=== PATIENT | female | born 1960 | race Caucasian/White ===

== ENCOUNTER → 2016-12-06 | Outpatient (REF) | payer MEDICAID ==
[~2016-12-06] MED LIST: /ESOM40CA OR; ARTISOL10 OU; ASPI325T OR; CRES5TAB PO; FLEXERIL PO; GEMF600T OR; HUMUINJ SQ; IMIT50TA INJ; INSULANT SC; METF500T4 OR; NEUR400C OR; RANI150C OR; SIMV40TA2 OR; TRAM50TA2 OR; TRAM50TA2 PO; ZETI10TA OR; fluocinonide TOP
== END ==
LOC: M LAB REF 15:09
PROVIDERS: ATTEND Ophthalmology
DX: H11.441 Conjunctival cysts, right eye (principal)

== ENCOUNTER → 2017-07-14 | Outpatient (CLI) | payer OTHER | LOC: M PAIN 10:30 | DX: G89.29 Other chronic pain (principal); M51.26 Other intervertebral disc displacement, lumbar region; M47.816 Spondylosis without myelopathy or radiculopathy, lumbar region; E11.9 Type 2 diabetes mellitus without complications; Z79.4 Long term (current) use of insulin; Z79.899 Other long term (current) drug therapy; Z91.018 Allergy to other foods; Z87.891 Personal history of nicotine dependence | CPT/HCPCS: G0463 ==

== ENCOUNTER → 2017-08-02 | Outpatient (CLI) | payer OTHER ==
[~2017-08-02] MED LIST changes: -/ESOM40CA OR; -ARTISOL10 OU; -ASPI325T OR; -CRES5TAB PO; -FLEXERIL PO; -GEMF600T OR; -HUMUINJ SQ; -IMIT50TA INJ; -INSULANT SC; +ISOVUE-M 300 61% 15ML VIAL (Q9967) As Ordered; +LIDOCAINE 1% SDV INJ 30 ML VIAL As Ordered; -METF500T4 OR; -NEUR400C OR; -RANI150C OR; -SIMV40TA2 OR; -TRAM50TA2 OR; -TRAM50TA2 PO; -ZETI10TA OR; +diazePAM 5 MG TAB As Ordered; -fluocinonide TOP; +methylPREDNISolone SUSP 40 MG/ML (DEPO-medrol) VIAL (J1030) As Ordered
== END ==
LOC: M PAIN 08:45
DX: G89.29 Other chronic pain (principal); M51.16 Intervertebral disc disorders with radiculopathy, lumbar region; E11.9 Type 2 diabetes mellitus without complications; Z79.4 Long term (current) use of insulin; Z79.899 Other long term (current) drug therapy; Z91.018 Allergy to other foods; Z87.891 Personal history of nicotine dependence
CPT/HCPCS: J1030

== ENCOUNTER → 2017-08-23 | Outpatient (CLI) | payer OTHER | LOC: M PAIN 10:00 | DX: M51.26 Other intervertebral disc displacement, lumbar region (principal); M47.816 Spondylosis without myelopathy or radiculopathy, lumbar region; Z79.4 Long term (current) use of insulin; Z79.899 Other long term (current) drug therapy; Z87.891 Personal history of nicotine dependence; Z91.018 Allergy to other foods | CPT/HCPCS: G0463 ==

== ENCOUNTER → 2017-10-24 | Outpatient (CLI) | payer OTHER | LOC: M PAIN 09:15 | DX: M51.26 Other intervertebral disc displacement, lumbar region (principal); M47.816 Spondylosis without myelopathy or radiculopathy, lumbar region; G89.29 Other chronic pain; E11.9 Type 2 diabetes mellitus without complications; J30.89 Other allergic rhinitis; Z79.4 Long term (current) use of insulin; Z79.899 Other long term (current) drug therapy; Z91.018 Allergy to other foods; Z98.890 Other specified postprocedural states; Z87.891 Personal history of nicotine dependence | CPT/HCPCS: G0463 ==

== ENCOUNTER 2018-03-27 07:52 | Day surgery (SDC) | payer OTHER ==
[~2018-03-27 07:52] MED LIST changes: +CYCLOPENTOLATE 2% OPHTH SOLN 2ML BTL OD; -ISOVUE-M 300 61% 15ML VIAL (Q9967) As Ordered; -LIDOCAINE 1% SDV INJ 30 ML VIAL As Ordered; +LIDOCAINE 3.5 % 1ML OPHTH TOPICAL GEL OU; +OFLOXACIN 0.3 % (OCUFLOX) OPTH SOL 5ML OD; +PHENYLEPHRINE 2.5% OPHTH SOL 2ML OD; +PHENYLEPHRINE HCL 10 % OPHTH. SOL 5ML OD; +TROPICAMIDE 1% OPHTH SOLN 2ML OD; -diazePAM 5 MG TAB As Ordered; -methylPREDNISolone SUSP 40 MG/ML (DEPO-medrol) VIAL (J1030) As Ordered
[2018-03-27] MEDS ORDERED: OFLOXACIN 0.3 % (OCUFLOX) OPTH SOL 5ML As Ordered (08:22)
[2018-03-27] MEDS ORDERED: CYCLOPENTOLATE 2% OPHTH SOLN 2ML BTL As Ordered (08:22)
[2018-03-27] MEDS ORDERED: PHENYLEPHRINE 2.5% OPHTH SOL 2ML As Ordered (08:22)
[2018-03-27] MEDS ORDERED: TROPICAMIDE 1% OPHTH SOLN 2ML As Ordered (08:22)
[2018-03-27] MEDS ORDERED: fentaNYL 100 MCG/2 ML INJECTION (J3010) As Ordered (08:25)
[2018-03-27] MEDS ORDERED: MIDAZOLAM INJ 2 MG/2 ML VIAL (J2250) As Ordered (08:25)
[2018-03-27 08:34] LABS: BEDSIDE GLUCOSE 380 MG/DL (70-105)
[2018-03-27] MEDS ORDERED: HumaLOG INSULIN (NovoLOG) PER UNIT As Ordered (08:54)
[2018-03-27] MEDS: HumaLOG INSULIN (NovoLOG) PER UNIT SC (08:55)
[2018-03-27] MEDS: POVIDONE-IODINE 5% OPHTH PREP SOL 30ML As Ordered (09:52)
[2018-03-27] MEDS: LIDOCAINE 1% SDV 5 ML VIAL As Ordered (09:56)
[2018-03-27] MEDS: BSS with VANC/TOB/EPI for EYE CASES IR (09:58)
[2018-03-27] MEDS: HEALON DUET (HEALON 10MG/ML 0.55ML & HEALON ENDOCOAT 30MG/ML 0.85ML) As Ordered (09:59)
[2018-03-27] MEDS: MOXIFLOXACIN IN BSS 0.25MG/0.25ML INTRACAMERAL INJ (OR EYE ONLY)(J2280) As Ordered (10:00)
[2018-03-27] MEDS: TRIAMCINOLONE PRES FR 40 MG/ML 1ML(TRIESENCE)(OR EYE ONLY)(J3300 PER 1MG) As Ordered (10:01)
== END 2018-03-27 10:45 | disposition home or self-care (01) ==
LOC: M SDC 07:52
DX: H25.9 Unspecified age-related cataract (principal); E11.9 Type 2 diabetes mellitus without complications; I10 Essential (primary) hypertension; E78.5 Hyperlipidemia, unspecified; Z79.82 Long term (current) use of aspirin; Z79.4 Long term (current) use of insulin; Z79.899 Other long term (current) drug therapy; F41.9 Anxiety disorder, unspecified; K21.9 Gastro-esophageal reflux disease without esophagitis; Z87.891 Personal history of nicotine dependence
CPT/HCPCS: 66984

== ENCOUNTER 2018-04-04 08:35 | Day surgery (SDC) | payer OTHER ==
[2018-04-04] MEDS: TRIAMCINOLONE PRES FR 40 MG/ML 1ML(TRIESENCE)(OR EYE ONLY)(J3300 PER 1MG) As Ordered (06:53)
[2018-04-04] MEDS: HEALON DUET (HEALON 10MG/ML 0.55ML & HEALON ENDOCOAT 30MG/ML 0.85ML) As Ordered (06:53)
[~2018-04-04 08:35] MED LIST changes: +ACETAMINOPHEN 325 MG TAB PO; -CYCLOPENTOLATE 2% OPHTH SOLN 2ML BTL OD; +LIDOCAINE 1% MDV 20ML VIAL SQ; -LIDOCAINE 3.5 % 1ML OPHTH TOPICAL GEL OU; +MIDAZOLAM INJ 2 MG/2 ML VIAL (J2250) As Ordered; -OFLOXACIN 0.3 % (OCUFLOX) OPTH SOL 5ML OD; +ONDANSETRON 4MG/2ML VIAL (J2405) As Ordered; -PHENYLEPHRINE 2.5% OPHTH SOL 2ML OD; -PHENYLEPHRINE HCL 10 % OPHTH. SOL 5ML OD; +PHENYLEPHRINE HCL 10 % OPHTH. SOL 5ML OS; -TROPICAMIDE 1% OPHTH SOLN 2ML OD; +fentaNYL 100 MCG/2 ML INJECTION (J3010) As Ordered
[2018-04-04] MEDS: LIDOCAINE 3.5 % 1ML OPHTH TOPICAL GEL OU (10:55)
[2018-04-04] MEDS: OFLOXACIN 0.3 % (OCUFLOX) OPTH SOL 5ML OS (11:00)
[2018-04-04] MEDS: TROPICAMIDE 1% OPHTH SOLN 2ML OS (11:02)
[2018-04-04] MEDS: CYCLOPENTOLATE 2% OPHTH SOLN 2ML BTL OS (11:04)
[2018-04-04 11:06] LABS: BEDSIDE GLUCOSE 363 MG/DL (70-105)
[2018-04-04] MEDS: PHENYLEPHRINE 2.5% OPHTH SOL 2ML OS (11:06)
[2018-04-04] MEDS ORDERED: HumaLOG INSULIN (NovoLOG) PER UNIT As Ordered (11:22)
[2018-04-04] MEDS: HumaLOG INSULIN (NovoLOG) PER UNIT SC (11:25)
[2018-04-04] MEDS: POVIDONE-IODINE 5% OPHTH PREP SOL 30ML As Ordered (12:30)
[2018-04-04] MEDS: MOXIFLOXACIN IN BSS 0.25MG/0.25ML INTRACAMERAL INJ (OR EYE ONLY)(J2280) As Ordered (12:37)
[2018-04-04] MEDS: BSS with VANC/TOB/EPI for EYE CASES IR (12:37)
[2018-04-04] MEDS: LIDOCAINE 1% SDV 5 ML VIAL As Ordered (12:37)
[2018-04-04] MEDS ORDERED: AcetaZOLAMIDE 500 MG ER CAP As Ordered (13:04)
[2018-04-04] MEDS: AcetaZOLAMIDE 500 MG ER CAP PO (13:12)
[2018-04-04] MEDS ORDERED: TRIMETHOBENZAMIDE 300 MG CAP PO (13:15)
== END 2018-04-04 13:27 | disposition home or self-care (01) ==
LOC: M SDC 08:35
DX: H26.9 Unspecified cataract (principal); I10 Essential (primary) hypertension; R07.9 Chest pain, unspecified; E78.5 Hyperlipidemia, unspecified; E11.00 Type 2 diabetes mellitus with hyperosmolarity without nonketotic hyperglycemic-hyperosmolar coma (NKHHC); E11.40 Type 2 diabetes mellitus with diabetic neuropathy, unspecified; K21.9 Gastro-esophageal reflux disease without esophagitis; M12.9 Arthropathy, unspecified; G43.909 Migraine, unspecified, not intractable, without status migrainosus; F41.9 Anxiety disorder, unspecified; M54.9 Dorsalgia, unspecified; R94.5 Abnormal results of liver function studies; G47.33 Obstructive sleep apnea (adult) (pediatric); L40.9 Psoriasis, unspecified; L91.8 Other hypertrophic disorders of the skin; J45.909 Unspecified asthma, uncomplicated; Z88.8 Allergy status to other drugs, medicaments and biological substances; Z91.018 Allergy to other foods; Z79.899 Other long term (current) drug therapy; Z79.82 Long term (current) use of aspirin; Z79.4 Long term (current) use of insulin; Z78.0 Asymptomatic menopausal state; Z87.891 Personal history of nicotine dependence
CPT/HCPCS: 66984

== ENCOUNTER → 2019-03-07 | Outpatient (REF) | payer OTHER ==
[~2019-03-07] MED LIST changes: -ACETAMINOPHEN 325 MG TAB PO; +ARTIDRO2 OP; +ARTISOL10 OU; +ASPI325T OR; +ASPI81TA26 PO; +ATOR80TA59 PO; +CRES40TA PO; +CRES5TAB PO; +FLEXERIL PO; +GABA-1171 PO; +GEMF600T OR; +HUMUINJ SQ; +HYDR-3363 PO; +IMIT50TA INJ; +INSUHUMDS SC; +INSULANT SC; +LEVOTAB10 PO; -LIDOCAINE 1% MDV 20ML VIAL SQ; +LISI-542 PO; +METF500T13 PO; +METF500T4 OR; -MIDAZOLAM INJ 2 MG/2 ML VIAL (J2250) As Ordered; +NEUR400C OR; +NEXI1CAP3 OR; -ONDANSETRON 4MG/2ML VIAL (J2405) As Ordered; -PHENYLEPHRINE HCL 10 % OPHTH. SOL 5ML OS; +RANI150C OR; +RANI150T PO; +SIMV40TA2 OR; +TOUJ1.2I SC; +TRAM50TA2 OR; +TRAM50TA2 PO; +TRUL0.5I SC; +ZETI10TA OR; -fentaNYL 100 MCG/2 ML INJECTION (J3010) As Ordered; +fluocinonide TOP
== END ==
LOC: M LAB REF 15:54
PROVIDERS: ATTEND Ophthalmology
DX: D23.111 Other benign neoplasm of skin of right upper eyelid, including canthus (principal); D23.121 Other benign neoplasm of skin of left upper eyelid, including canthus

== ENCOUNTER 2019-10-04 12:57 | Inpatient (IN) | payer OTHER ==
[~2019-10-04 12:57] MED LIST changes: -ARTIDRO2 OP; +POLYOPD OP
[2019-10-04 14:15] VITALS: BP 143/84
[2019-10-04] MEDS ORDERED: DEXTROSE 50% 50 ML SYRINGE IV PRN ×2 (14:30→15:30)
[2019-10-04] MEDS ORDERED: GLUCAGON INJ 1MG VIAL SC PRN ×2 (14:30→15:30)
[2019-10-04] MEDS ORDERED: GLUCOSE 4GM CHEW TABLET PO PRN ×2 (14:30→15:30)
[2019-10-04] MEDS ORDERED: OMEP-218 PO (15:02)
[2019-10-04] MEDS ORDERED: VITA-158 PO (15:02)
[2019-10-04] MEDS ORDERED: VITAD1000T PO (15:02)
[2019-10-04] MEDS ORDERED: VICT18IN SC (15:02)
[2019-10-04] MEDS ORDERED: LISI-1046 PO (15:02)
[2019-10-04] MEDS ORDERED: PROZ10CA7 PO (15:02)
[2019-10-04] MEDS ORDERED: ACET-907 PO (15:02)
[2019-10-04] MEDS ORDERED: LANTINJ4 SC (15:02)
[2019-10-04] MEDS ORDERED: CLOP75TA2 PO (15:02)
[2019-10-04] MEDS ORDERED: IPRATROPIUM 0.5MG/ALBUTEROL 2.5MG INH SOL UD 3ML (DUONEB)(J7620) NEB PRN (15:30)
[2019-10-04] MEDS ORDERED: BISACODYL 10 MG SUPP PR PRN (15:30)
[2019-10-04 15:47] LABS: BASO # 0.1 10^3/uL (0.0-0.2); BASO % 0.6 % (0.0-1.0); EOS # 0.3 10^3/uL (0.0-0.5); HEMATOCRIT 39.6 % (36.0-47.0); LYMPH # 3.1 10^3/uL (1.5-5.0); LYMPH % 32.6 % (24.0-44.0); MEAN CORPUSCULAR HGB CONC 32.8 g/dl (32.0-36.5); MEAN CORPUSCULAR VOLUME 94.3 fl (80.0-96.0); MONO # 0.6 10^3/uL (0.0-0.8); MONO % 6.1 % (0.0-5.0); NEUTROPHILS # 5.5 10^3/uL (1.5-8.5); NEUTROPHILS % 57.2 % (36.0-66.0); PLATELET COUNT, AUTOMATED 229 10^3/uL (150-450); WHITE BLOOD COUNT 9.5 10^3/uL (4.0-10.0)
[2019-10-04] MEDS: REMEDY PHYTOPLEX Z-GUARD PASTE 113GM TUBE (FROM STOREROOM PRODUCT) TOP SCH ×2 (16:00→21:00)
[2019-10-04 16:02] LABS: BLOOD UREA NITROGEN 24 MG/DL (7-18); CALCIUM LEVEL 8.6 MG/DL (8.5-10.1); CARBON DIOXIDE LEVEL 29 MEQ/L (21-32); CHLORIDE LEVEL 100 MEQ/L (98-107); CREATININE FOR GFR 0.95 MG/DL (0.55-1.30); GLOMERULAR FILTRATION RATE > 60.0 (>51); GLUCOSE, FASTING 195 MG/DL (70-100); POTASSIUM SERUM 3.9 MEQ/L (3.5-5.1); SODIUM LEVEL 135 MEQ/L (136-145)
[2019-10-04] MEDS ORDERED: ISOVUE-370 76% 100ML VIAL As Ordered ONE (17:06)
[2019-10-04] MEDS ORDERED: HumaLOG INSULIN (NovoLOG) PER UNIT SC SCH ×2 (17:30→21:00)
--- NOTE | 2019-10-04 17:40 | HPEPDOC ---
Insurance Office Supervisor Note DATE OF ADMISSION: 10-04-19 DATE OF SERVICE: 10-04-19 TIME OF ADMISSION: Please refer to physician's admission order. SOURCE OF ADMISSION INFORMATION: [facility] and patient CHIEF COMPLAINT: stroke with urinary retention HISTORY OF PRESENT ILLNESS: 59F pmh HTN, DM, HLD, obesity, right sided nephrolithiasis with possible infection in 1982, kidney stones presented to [facility] from [place] on 09-28-19 for left sided weakness that was acute in onset following ongoing headache with nausea and vomiting that began on 09-14-19 with generalized weakne ss. CTH outpatient was ordered by her PCP on 09-24-19 which did not reveal any intracranial findings, but when her symptoms persisted and there was new onset of left sided weakness she was sent to [facility] ED where imaging showed subacute infarcts and she was transferred to [facility]. MRI brain 09-29-19 showed, Several subacute infarcts in the right MCA territory mainly involving the right thalamus, right posterior temporal lobe and right centrum semiovale. Microhemorrhages are also noted within these infarcts and CTA head and neck showed, Right posterior watershed region hypodensity concerning for acute infarct. She was monitored on telemetry, started on ASA and Plavix, and metastatic work-up was done. ECHO was overall unrevealing and cardiology deemed the anterior pericardial effusion noted on CT thorax to be trivial, not warranting further work-up. Marley was placed on 10-01-19 for urinary retention which was complicated by gross hematuria thought to be due to traumatic insertio n with recently started ASA and Plavix. She was seen by urology on 10-02-19 for urinary retention, hematuria and additionally for incidental finding of bilateral hydroureteronephrosis noted on contrast CT abdomen pelvis from 09-29-19 which was ordered as part of a rule out metastatic cancer work-up. Urology recommended continue Marley, obtain US, and follow-up as outpatient. On day of discharge 10-04-19 renal US was obtained showing Moderate bilateral hydronephrosis. Moderate dilation of the right proximal mid ureter is also seen. There appears to be echogenic material within the right renal collecting system which can be associate financial representative of pyonephritis. Of note UA from 10-01-19 showed 9k rbcs, no LE/nitrites and did not reflex to culture. Repeat UA/Ucx was not ordered following later US findings. Patient did not clinically appear ill, showing no signs of sepsis per [facility] records, and she was discharged to ARU with Marley and with instructions to hold Plavix in setting of hematuria while c ontinuing on ASA for secondary stroke prevention. She had been evaluated by therapy prior to discharge and had deficits in mobility and ADLs making her appropriate for IRF level of care. On initial eval patient denies fevers, chills, nausea, but does have some left lower back pain. REVIEW OF SYSTEMS: The following is a completed review of systems and has been reviewed. Review of systems otherwise unremarkable. PAIN: Patient self reports no pain EYES: No recent vision changes EARS, NOSE, & THROAT: No throat pain, or dysphagia, or rhinorrhea CARDIOVASCULAR: Denies chest pain or palpitations PULMONARY: Denies shortness of breath GASTROINTESTINAL: Denies constipation/diarrhea GENITOURINARY: +urinary retention and hematuria MUSCULOSKELETAL: +left lower back pain NEUROLOGICAL: generalized weakness HEMATOLOGICAL: denies easy bruising SKIN: + psoriasis sacrum, right elbow, and facial PSYCHIATRIC: Unremarkable All other review of systems found to be negative. PAST MEDICAL HISTORY: as per hpi ALLERGIES: Please see below. MEDICATIONS: Please see below. SOCIAL HISTORY: Ex-smoker, no etoh, no illicit drugs DIET: consistent carb PHYSICAL EXAMINATION: VITAL SIGNS: Please see below. GENERAL: Pleasant and cooperative. No acute distress. HEENT: PERRL. Extraocular movements intact. Clear conjunctiva CARDIOVASCULAR: Regular rate and rhythm. No murmurs, rubs, or gallops LUNGS: Clear to auscultation bilaterally. No wheezes. No rhonchi +Left sided mild CVA tenderness, no CVA tenderness on right side ABDOMEN: Soft, nontender, nondistended. Positive bowel sounds. Normal active bowel sounds NEUROLOGICAL: Alert and oriented times three. Cranial nerves II through XII grossly intact. Sensation grossly intact to light touch (-) babinski/clonus (-) extinction to touch EXTREMITIES: 5\\5 strength bilateral upper extremities. 5\\5 strength right lower extremity. 5/5 strength in left lower extremity. 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 IMAGING:Imaging documentation personally reviewed by record FUNCTIONAL STATUS: Premorbid: Independent with all activities of daily life as well as mobility On Admission: requiring some assistance assistance for bathing, upper body dressing, bed chair and wheelchair transfers, toilet transfers, ambulation. GOALS: mod-i for bathing, upper/lower body dressing, bed chair and wheelchair transfers, toilet transfers, ambulation, stairs ASSESSMENT: 59-year-old F with past medical history of htn, dm, obesity who presents status post stroke with urinary retention PLAN: 1. Rehab- PT/OT advance gait and ADL training, stretch/strenghen/maintain ROM all 4 limbs, dynamic balance training 2.neuro: s/p multiple infarcts with generalized weakness, c/u ASA, plavix on ho ld in setting of hematuria -c/u statin and good BP control 3. Cardiac: hx of HTN c/u lisinopril-medicine consulted to assist in overall management 4. resp: hx of LINDA on CPAP, will order nocturnal 02 until patient can obtain home CPAP machine -pt with hx of smoking, CT thorax indicated Emphysema, will order duonebs prn, encourage incentive spirometry and monitor for infection 5. Endo: hx of DM, patient on metformin at home, did not receive in [facility], will c/u to hold and c/u on insulin, monitor and adjust prn -consistent carb diet -TSH 09-29-19 elevated, however may be due to recent strokes-recommend f/u with PMD 6. /renal: patient with hematuria onset 10-01-19 following Marley traumatic insertion due to urinary retention -it is possible patient had chronic retention prior to admission given bilateral hydronephrosis seen on [id number]-[id number] with contrast 09-29-19 "Kidneys and ureters: Moderate bilateral ureteral dilatation with high attenuation, left greater than right, compatible with contrast. Small renal cysts are noted. Scarring in the upper pole of the posterior right kidney." - patient also with distant hx of kidney stone vs infection in 1982 -per [facility] urology recs on 10-01-19 c/u Marley and f/u outpatient -renal US 10-04-19 from [facility] shows possible right sided pyelonephritis, further was work-up not initiated and patient d/cd to ARU- on admission exam patient d oes not appear septic she has mild CVA tenderness on the left, none on the right, she continues to have hematuria -I have ordered CT abdomen pelvic with and without contrast to r/o kidney stones and better assess for possible pyelonephritis that may have developed since earlier CT vs scarring vs abscess, blood cx have also been obtained and UA/Ucx -at this time patient is afebrile, admission cbc shows no leukocytosis, will await imaging and further lab results, and increase vital checks to q4h while on ARU to monitor for sepsis which if develops patient will need initial broad spectrum coverage- diabetes solutions specialist hospitalist aware and agrees with current plan -f/u urology on d/c, will consider inhouse consult as needed -will monitor for contrast induced ARLETH following CT scan and treat accordingly 7. Heme: monitor for blood loss anemia in setting of hematuria and transfuse if Hgb <8 or if symptomatic 8. GI ppx: protonix 9. DVT ppx: dopplers on 10-01-19 negative for DVT, patient with good overall s trength and movement, will hold Lovenox in setting of hematuria and microhemorrhages on recent MRI, and c/u TEDs and ASA 10. Pain: Tylnenol prn 11. Dispo: tbd POST ADMISSION PHYSICIAN EVALUATION: Medical and functional status: Description of medical status, medical assessment: As above. Rehabilitation diagnosis and current and prior cold morbid medical conditions as above. Risk of complications and plans to mitigate them as above. Description of functional status current status is as above. Prior status as above. Status compared to preadmission: There are no clinically significant differences between the patient's current status and the information described on the preadmission screening document. Treatment plan anticipated: Treatment plan is as described above. Required disciplines including physical therapy, occupational therapy, others as noted above Intensity of services: 3 hours a day, 6 days a week. Special considerations: There are no specific special or safety considerations that would likely preclude immediate implementation of an intensive rehabilitation program or subsequently influence the plan of care. ATTESTATION: Considering all the information above, it is my best judgment that this patient requires intensive rehabilitation therapy as described above and an inpatient hospital environment due to the complexity of nursing, medical, and rehabilitation needs required by the patient. Furthermore, this patient can reasonably be expected to participate in an benefit from an inpatient rehabilitation stay with an interdisciplinary team approach to the delivery of rehabilitation care under the direction and supervision of rehabilitation physician. PROGNOSIS: Excellent. ESTIMATED LENGTH OF STAY: 10-12 days. PROJECTED DISCHARGE DESTINATION: Home with family support and any durable medical equipment required to increase functional safety and mobility. TIME SPENT COUNSELING AND COORDINATING INITIAL CARE: Greater than 70 minutes. Vital Signs Vital Sign - Last 24 Hours 10/04/19 14:15 Temp 97.1 Pulse 87 Resp 20 B/P (MAP) 143/84 (103) Pulse Ox 99 O2 Delivery Room Air Laboratory Data CBC/BMP Laboratory Tests 10/04/19 15:29 Labs 24H Laboratory Tests 2 10/04/19 15:29: Immature Granulocyte % (Auto) 0.5, Neutrophils (%) (Auto) 57.2, Lymphocytes (%) (Auto) 32.6, Monocytes (%) (Auto) 6.1H, Eosinophils (%) (Auto) 3.0, Basophils (%) (Auto) 0.6, Neutrophils # (Auto) 5.5, Lymphocytes # (Auto) 3.1, Monocytes # (Auto) 0.6, Eosinophils # (Auto) 0.3, Basophils # (Auto) 0.1, Nucleated Red Blood Cells % (auto) 0.0, Anion Gap 6L, Glomerular Filtration Rate > 60.0, Calcium Level 8.6 10/04/19 16:38: Bedside Glucose (Misc Panel) 264H FSBS Laboratory Tests Test 10/04/19 16:38 Range/Units Bedside Glucose (Misc Panel) 264 70-105 MG/DL Microbiology Microbiology 10/04/19 Blood Culture, Received Pending 10/04/19 Blood Culture, Received Pending Home Medications Scheduled Ascorbic Acid (Vitamin C) 500 Mg Tablet, 500 MG PO DAILY, (Reported) Aspirin (Aspirin EC) 81 Mg Tab, 81 MG PO DAILY, (Reported) Cholecalciferol (Vitamin D3) (Vitamin D3) 1,000 Unit Tablet, 1,000 UNITS PO DAILY, (Reported) Clopidogrel Bisulfate (Clopidogrel) 75 Mg Tablet, 75 MG PO DAILY, (Reported) Fluoxetine HCl (Prozac) 10 Mg Capsule, 10 MG PO DAILY, (Reported) STARTED AT [facility] Insulin Glargine,Hum.rec.anlog (Lantus Solostar) 100 Unit/1 Ml Insuln.pen, 45 UNITS SC QHS, (Reported) STARTED AT [facility] Insulin Human Lispro (Humalog) 1 Units/0.01 Ml Inj, 1 DOSE SC AC, (Reported) PER SLIDING SCALE Liraglutide (Victoza 2-Kailash) 0.6 Mg/0.1 Ml Pen.injctr, 1.2 MG SC DAILY, (Reported) Lisinopril (Lisinopril) 2.5 Mg Tablet, 2.5 MG PO DAILY, (Reported) Metformin HCl (Metformin HCl) 500 Mg Tab, 1,000 MG PO BID, (Reported) Omeprazole (Omeprazole) 20 Mg Capsule.dr, 20 MG PO DAILY, (Reported) Rosuvastatin Calcium (Crestor) 40 Mg Tab, 40 MG PO DAILY, (Reported) RECEIVED LIPITOR 80MG AT [facility] Scheduled PRN Acetaminophen (Tylenol) 325 Mg Tablet, 650 MG PO QID PRN for PAIN, (Reported) Allergies Coded Allergies: Grape (Verified Allergy, Intermediate, HIVES, 04/21/12) metformin (Verified Adverse Reaction, Mild, UNABLE TO SWALLOW 1000MG TABLETS, 10/04/19) A-FIB/CHADSVASC A-FIB History Current/History of A-Fib/PAF?: No DEX ALEXANDER MD Oct 04, 2019 17:40
[2019-10-04] MEDS: HumaLOG INSULIN (NovoLOG) PER UNIT SC SCH ×2 (17:50→21:00)
--- NOTE | 2019-10-04 18:00 | REPVR ---
PROCEDURE INFORMATION: Exam: CT Abdomen And Pelvis Without And With Contrast; Urography Exam date and time: 10/04/2019 5:09 PM Age: 59 years old Clinical indication: Other: Roann; Additional info: R/O kidney stone/abscess- [place] US +bilat hydronephosis? Pyelo TECHNIQUE: Imaging protocol: Computed tomography of the abdomen and pelvis without and with intravenous contrast. Exam focused on the kidneys and ureters. Axial, coronal and sagittal reformatted images were created and reviewed. Radiation optimization: All CT scans at this facility use at least one of these dose optimization techniques: automated exposure control; mA and/or kV adjustment per patient size (includes targeted exams where dose is matched to clinical indication); or iterative reconstruction. Contrast material: ISOVUE 370; Contrast volume: 100 ml; Contrast route: IV; COMPARISON: No relevant prior studies available. FINDINGS: Liver: Subtle nodularity of the hepatic contour, suggesting cirrhosis. Gallbladder and bile ducts: Cholelithiasis. Pancreas: Normal. No ductal dilation. Spleen: Normal. No splenomegaly. Adrenals: Normal. No mass. Kidneys and ureters: Minimal bilateral hydroureteronephrosis without obstructing radiodense ureteral or bladder calculi. Punctate nonobstructing left renal calculus. No renal cortical mottling or striation. Stomach and bowel: Normal. No obstruction. No mucosal thickening. Intraperitoneal space: Unremarkable. No free air. No significant fluid collection. Lymph nodes: Unremarkable. No enlarged lymph nodes. Vasculature: Jsjw-hc-owwjxgxe atherosclerotic disease. No aneurysm or dissection. Bladder: Marley catheter in place. Pronounced circumferential urinary bladder wall thickening and perivesicular edema. Reproductive: Unremarkable. Bones/joints: No acute osseous abnormality. Osteopenia. Degenerative changes. Soft tissues: Small, fat containing umbilical hernia. Other findings: Small hiatal hernia and mild nonspecific distal esophageal wall thickening, suggesting chronic reflux/esophagitis. Elevated right hemidiaphragm. IMPRESSION: 1. Pronounced circumferential urinary bladder wall thickening and perivesicular edema, compatible with cystitis. Correlate with urinalysis. 2. Minimal bilateral hydroureteronephrosis without obstructing radiodense ureteral or bladder calculi. 3. Additional findings, as above. Electronically signed by: Derrell Tabares On 10/04/2019 18:00:02 PM
[2019-10-04] MEDS: SENNA 8.6 MG TAB (SENOKOT) PO SCH (21:00)
[2019-10-04] MEDS: DOCUSATE SODIUM 100 MG CAP PO SCH (21:00)
[2019-10-04 21:29] VITALS: BP 124/64
[2019-10-04] MEDS: ATORVASTATIN 20 MG TAB PO SCH (21:33)
[2019-10-04] MEDS: LEVEMIR (INSULIN DETEMIR) 1 UNITS/0.01ML SC SCH (21:42)
[2019-10-05 06:00] VITALS: BP 125/71
[2019-10-05 07:09] LABS: BASO # 0.1 10^3/uL (0.0-0.2); BASO % 0.7 % (0.0-1.0); EOS # 0.3 10^3/uL (0.0-0.5); EOS % 4.4 % (0.0-3.0); HEMATOCRIT 37.4 % (36.0-47.0); HEMOGLOBIN 12.3 g/dl (12.0-15.5); LYMPH # 2.3 10^3/uL (1.5-5.0); LYMPH % 31.5 % (24.0-44.0); MEAN CORPUSCULAR HEMOGLOBIN 30.9 pg (27.0-33.0); MEAN CORPUSCULAR HGB CONC 32.9 g/dl (32.0-36.5); MONO # 0.6 10^3/uL (0.0-0.8); MONO % 8.1 % (0.0-5.0); NEUTROPHILS % 54.6 % (36.0-66.0); PLATELET COUNT, AUTOMATED 190 10^3/uL (150-450); RED BLOOD COUNT 3.98 10^6/uL (4.00-5.40); WHITE BLOOD COUNT 7.3 10^3/uL (4.0-10.0)
[2019-10-05] MEDS: ASPIRIN 81 MG ENTERIC TAB PO SCH (08:26)
[2019-10-05] MEDS: CEPHALEXIN 500 MG CAP PO SCH ×3 (08:26→17:32)
[2019-10-05] MEDS: FLUoxetine 10 MG CAP PO SCH (08:27)
[2019-10-05] MEDS: PANTOPRAZOLE 40MG TAB (PROTONIX) PO SCH (08:27)
[2019-10-05] MEDS: lisinopriL 5 MG TAB PO SCH (08:27)
[2019-10-05] MEDS: DOCUSATE SODIUM 100 MG CAP PO SCH ×2 (08:27→20:46)
[2019-10-05] MEDS: REMEDY PHYTOPLEX Z-GUARD PASTE 113GM TUBE (FROM STOREROOM PRODUCT) TOP SCH ×3 (08:28→20:52)
[2019-10-05] MEDS: HumaLOG INSULIN (NovoLOG) PER UNIT SC SCH ×4 (08:28→20:47)
[2019-10-05] MEDS ORDERED: ENOXAPARIN 40MG/0.4ML SYRINGE (J1650 PER 10MG) SC SCH (09:00)
[2019-10-05] MEDS: NYSTATIN 100,000 UNITS/GM TOPICAL PWD 15 GM TOP SCH ×2 (09:00→20:51)
[2019-10-05] MEDS ORDERED: LevoFLOXacin 750 MG TABLET PO SCH (11:00)
--- NOTE | 2019-10-05 13:33 | IPNPDOC ---
PM&R Progress Note DATE OF SERVICE: Oct 05, 2019 Purchasing Expeditor Progress Note Subjective: Patient reporting she feels worn out from therapy, but otherwise is in good spirits. She denies fevers, chills, or increased back pain. REVIEW OF SYSTEMS: The following is a completed review of systems and has been reviewed. Review of systems otherwise unremarkable. PAIN: Patient self reports no pain EYES: No recent vision changes EARS, NOSE, & THROAT: No throat pain, or dysphagia, or rhinorrhea CARDIOVASCULAR: Denies chest pain or palpitations PULMONARY: Denies shortness of breath GASTROINTESTINAL: Denies constipation/diarrhea GENITOURINARY: +urinary retention and hematuria MUSCULOSKELETAL: +left lower back pain NEUROLOGICAL: generalized weakness HEMATOLOGICAL: denies easy bruising SKIN: + psoriasis sacrum, right elbow, and facial PSYCHIATRIC: Unremarkable All other review of systems found to be negative. PHYSICAL EXAMINATION: VITAL SIGNS: Please see below. GENERAL: Pleasant and cooperative. No acute distress. HEENT: PERRL. Extraocular movements intact. Clear conjunctiva CARDIOVASCULAR: Regular rate and rhythm. No murmurs, rubs, or gallops LUNGS: Clear to auscultation bilaterally. No wheezes. No rhonchi +Left sided mild CVA tenderness, no CVA tenderness on right side ABDOMEN: Soft, nontender, nondistended. Positive bowel sounds. Normal active bowel sounds NEUROLOGICAL: Alert and oriented times three. Cranial nerves II through XII grossly intact. Sensation grossly intact to light touch (-) babinski/clonus (-) extinction to touch EXTREMITIES: 5\\5 strength bilateral upper extremities. 5\\5 strength right lower extremity. 5/5 strength in left lower extremity. 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 Rehab- PT/OT advance gait and ADL training, stretch/strengthen/maintain ROM all 4 limbs, dynamic balance training 2.neuro: s/p multiple infarcts with generalized weakness, c/u ASA, plavix on hold in setting of hematuria -c/u statin and good BP control 3. Cardiac: hx of HTN c/u lisinopril-medicine consulted to assist in overall management 4. resp: hx of LINDA on CPAP, will order nocturnal 02 until patient can obtain home CPAP machine -pt with hx of smoking, CT thorax indicated Emphysema, c/u duonebs prn, encourage incentive spirometry and monitor for infection 5. Endo: hx of DM, patient on metformin at home, did not receive in [facility], will c/u to hold and c/u on insulin, monitor and adjust prn -consistent carb diet -TSH 09-29-19 elevated, however may be due to recent strokes-recommend f/u with PMD 6. /renal: patient with hematuria onset 10-01-19 following Marley traumatic insertion due to urinary retention -it is possible patient had chronic retention prior to admission given bilateral hydronephrosis seen on JA-now-fzdpar with contrast 09-29-19 "Kidneys and ureters: Moderate bilateral ureteral dilatation with high attenuation, left greater than right, compatible with contrast. Small renal cysts are noted. Scarring in the upper pole of the posterior right kidney." - patient also with distant hx of kidney stone vs infection in 1982 -per [facility] urology recs on 10-01-19 c/u Marley and f/u outpatient -renal US 10-04-19 from [facility] shows possible right sided pyelonephritis, further was work-up not initiated and patient d/cd to ARU- on admission exam patient does not appear septic she has mild CVA tenderness on the left, none on the right, she continues to have hematuria -admission CT abdomen pelvic with and without contrast 10-04-19 did not reveal pyelonephritis, "Minimal bilateral hydroureteronephrosis without obstructing radiodense ureteral or bladder calculi. Punctate nonobstructing left renal calculus. No renal cortical mottling or striation." -blood cx have also been obtained results pending -UA + for LE and wbc, started on Keflex while awaiting Ucx -will start flomax for left sided kidney stone to assist in passage and and poss ible bladder outlet obstruction -f/u urology on d/c, will consider inhouse consult as needed -will monitor for contrast induced ARLETH following CT scan and treat accordingly 7. Heme: monitor for blood loss anemia in setting of hematuria and transfuse if Hgb <8 or if symptomatic 8. GI ppx: protonix 9. DVT ppx: dopplers on 4-13-20 negative for DVT, patient with good overall strength and movement, will hold Lovenox in setting of hematuria and microhemorrhages on recent MRI, and c/u TEDs and ASA 10. Pain: Tylnenol prn 11. Dispo: tbd Allergies Coded Allergies: Grape (Verified Allergy, Intermediate, HIVES, 04/21/12) metformin (Verified Adverse Reaction, Mild, UNABLE TO SWALLOW 1000MG TABLETS, 10/04/19) Vital Signs Vital Signs Date Time Temp Pulse Resp B/P (MAP) Pulse Ox O2 Delivery O2 Flow Rate FiO2 10/05/19 06:00 97.5 84 18 125/71 (89) 98 Nasal Cannula 2.0 Laboratory Data CBC/BMP Laboratory Tests 10/04/19 15:29 10/05/19 06:22 Labs 24H Laboratory Tests 2 10/04/19 15:29: Immature Granulocyte % (Auto) 0.5, Neutrophils (%) (Auto) 57.2, Lymphocytes (%) (Auto) 32.6, Monocytes (%) (Auto) 6.1H, Eosinophils (%) (Auto) 3.0, Basophils (%) (Auto) 0.6, Neutrophils # (Auto) 5.5, Lymphocytes # (Auto) 3.1, Monocytes # (Auto) 0.6, Eosinophils # (Auto) 0.3, Basophils # (Auto) 0.1, Nucleated Red Blood Cells % (auto) 0.0, Anion Gap 6L, Glomerular Filtration Rate > 60.0, Calcium Level 8.6 10/04/19 16:38: Bedside Glucose (Misc Panel) 264H 10/04/19 18:50: Urine Color YELLOW, Urine Appearance CLOUDYH, Urine pH 6.0, Urine Specific [place] 1.039, Urine Protein 3+H, Urine Glucose (UA) 3+H, Urine Ketones NEGATIVE , Urine Blood 3+H, Urine Nitrite NEGATIVE, Urine Bilirubin NEGATIVE, Urine Urobilinogen 2.0H, Urine Leukocyte Esterase 1+H, Urine WBC (Auto) 62H, Urine RBC (Auto) TNTCH, Urine Hyaline Casts (Auto) 0, Urine Bacteria (Auto) 1+H, Urine Squamous Epithelial Cells 0, Urine Mucus (Auto) SMALL, Urine Sperm (Auto) 10/04/19 21:26: Bedside Glucose (Misc Panel) 174H 4/17/20 06:22: Immature Granulocyte % (Auto) 0.7, Neutrophils (%) (Auto) 54.6, Lymphocytes (%) (Auto) 31.5, Monocytes (%) (Auto) 8.1H, Eosinophils (%) (Auto) 4.4H, Basophils (%) (Auto) 0.7, Neutrophils # (Auto) 4.0, Lymphocytes # (Auto) 2.3, Monocytes # (Auto) 0.6, Eosinophils # (Auto) 0.3, Basophils # (Auto) 0.1, Nucleated Red Blood Cells % (auto) 0.0 10/05/19 06:40: Bedside Glucose (Misc Panel) 162H 10/05/19 11:36: Bedside Glucose (Misc Panel) 203H Microbiology Microbiology 10/04/19 Urine Culture, Received Pending 10/04/19 Blood Culture, Received Pending 10/04/19 Blood Culture, Received Pending Current Medications Current Medications Current Medications Medications (Trade) Dose Ordered Sig/Jasbir Route PRN Reason Start Time Stop Time Status Last Admin Dose Admin Acetaminophen (Tylenol Tab) 650 mg Q4HP PRN PO fever/MILD PAIN (PS 1-4) 10/04/19 15:30 Albuterol/ Ipratropium (Duoneb (Ipr 0.5mg/Alb 2.5mg)) 3 ml TID PRN NEB wheeze 10/04/19 15:30 Aspirin (Ecotrin) 81 mg DAILY PO 10/05/19 09:00 10/05/19 08:26 Atorvastatin Calcium (Lipitor) 80 mg QHS PO 10/04/19 21:00 10/04/19 21:33 Bisacodyl (Dulcolax Suppository) 10 mg DAILYPRN PRN MT CONSTIPATION 10/04/19 15:30 Cephalexin Monohydrate (Keflex) 500 mg Q6H PO 10/05/19 06:00 10/05/19 12:42 Dextrose (Dextrose 50%) 25 ml ASDIRECTED PRN IV SEE LABEL COMMENTS 10/04/19 14:30 Cancel Dextrose (Dextrose 50%) 25 ml ASDIRECTED PRN IV SEE LABEL COMMENTS 10/04/19 15:30 Docusate Sodium (Colace) 100 mg BID PO 10/04/19 21:00 10/05/19 08:27 Enoxaparin Sodium (Lovenox) 40 mg DAILY SC 10/05/19 09:00 10/04/19 17:19 DC Fluoxetine HCl (PROzac) 10 mg DAILY PO 10/05/19 09:00 10/05/19 08:27 Glucagon (Glucagon) 1 mg ASDIRECTED PRN SC SEE LABEL COMMENTS 10/04/19 14:30 Cancel Glucagon (Glucagon) 1 mg ASDIRECTED PRN SC SEE LABEL COMMENTS 10/04/19 15:30 Glucose (Glucose) 16 GM ASDIRECTED PRN PO SEE LABEL COMMENTS 10/04/19 14:30 Cancel Glucose (Glucose) 16 GM ASDIRECTED PRN PO SEE LABEL COMMENTS 10/04/19 15:30 Home Med (Med Rec Complete!) ASDIRECTED XX 10/04/19 15:15 10/04/19 15:04 DC Insulin Detemir (Levemir Insulin) 40 units QHS SC 10/04/19 21:00 10/04/19 21:42 Insulin Human Lispro (HumaLOG INSULIN) SEE PROTOCOL TABLE AC AR 10/04/19 17:30 10/05/19 12:43 Insulin Human Lispro (HumaLOG INSULIN) SEE PROTOCOL TABLE AC AR 10/04/19 17:30 Cancel Insulin Human Lispro (HumaLOG INSULIN) SEE PROTOCOL TABLE [facility] 10/04/19 21:00 Insulin Human Lispro (HumaLOG INSULIN) SEE PROTOCOL TABLE QBRYN [facility] 10/04/19 21:00 Cancel Lactobacillus Acidophilus (Bacid) 1 ea TID PO 10/05/19 16:00 Levofloxacin (Levaquin) 750 mg DAILY@06 PO 10/05/19 11:00 10/05/19 11:08 DC Lisinopril (Prinivil) 5 mg DAILY PO 10/05/19 09:00 10/05/19 08:27 Pantoprazole Sodium (Protonix) 40 mg DAILY PO 10/05/19 09:00 10/05/19 08:27 Senna (Senokot) 1 tab QHS PO 10/04/19 21:00 DEX ALEXANDER MD Oct 05, 2019 13:33
[2019-10-05 14:14] VITALS: BP 107/61
--- NOTE | 2019-10-05 15:08 | HPEPDOC ---
General Date of Admission Oct 04, 2019 at 14:23 Date of Service: Oct 05, 2019 Attending Physician: CHELSY MANN MD Chief Complaint The patient is a 59-year-old female admitted with a reason for visit of Left Temporal Ischemic Stroke. Source: Patient, RN/, Old records Exam Limitations: No limitations History of Present Illness 59 year old woman with HTN, DM, HLD, obesity, remote history of kidney stones who was admitted to the ARU from [facility] where she had presented on 09/27 with acute left sided weakness and N/V of a few days duration and workup was ultimately notable for MRI brain that showed subacute infarcts in the right MCA territory mainly involving the right thalamus, right posterior temporal lobe and right centrum semiovale with surrounding microhemorrhages, after initial noncontrast head CT was negative for acute pathology. Given the chronicity of her symptoms and imaging suggestive of a subacute stroke, she was treated with ASA and Plavix and placed on telemetry, while a TTE was grossly normal without a PFO and a trivial anterior pericardial effusion. Of note, her brain MRI showed incidental small lesions for which a limited oncology work up was pursued and she had a CT chest and CT A/P during which she was found to have bilateral hydroureteronephrosis and urology recommended continuing a sullivan and follow up with an ultrasound. On the day of discharge she had the follow up renal US that reconfirmed the bilateral hydronephrosis and also noted bladder wall thickening suggestive of possible pyelonephritis and was discharged to the [facility] ARU. She was admitted to the [facility] ARU on 10/04/2019 and arrived hemodynamically stable, afebrile, and clinically well with a sullivan catheter draining pinkish blood tinged urine. Given the concern of the possible pyelonephritis, Dr. Calzada ordered a CT A/P that noted bladder wall thickening, mild bilateral hydronephrosis without any obstructing radiodense stones while noting non obstructive punctate L renal calculi. The sullivan was exchanged and a new sullivan placed. Home Medications Scheduled Ascorbic Acid (Vitamin C) 500 Mg Tablet, 500 MG PO DAILY, (Reported) Aspirin (Aspirin EC) 81 Mg Tab, 81 MG PO DAILY, (Reported) Cholecalciferol (Vitamin D3) (Vitamin D3) 1,000 Unit Tablet, 1,000 UNITS PO DAILY, (Reported) Clopidogrel Bisulfate (Clopidogrel) 75 Mg Tablet, 75 MG PO DAILY, (Reported) Fluoxetine HCl (Prozac) 10 Mg Capsule, 10 MG PO DAILY, (Reported) STARTED AT [facility] Insulin Glargine,Hum.rec.anlog (Lantus Solostar) 100 Unit/1 Ml Insuln.pen, 45 UNITS SC QHS, (Reported) STARTED AT [facility] Insulin Human Lispro (Humalog) 1 Units/0.01 Ml Inj, 1 DOSE SC AC, (Reported) PER SLIDING SCALE Liraglutide (Victoza 2-Kailash) 0.6 Mg/0.1 Ml Pen.injctr, 1.2 MG SC DAILY, (Reported) Lisinopril (Lisinopril) 2.5 Mg Tablet, 2.5 MG PO DAILY, (Reported) Metformin HCl (Metformin HCl) 500 Mg Tab, 1,000 MG PO BID, (Reported) Omeprazole (Omeprazole) 20 Mg Capsule.dr, 20 MG PO DAILY, (Reported) Rosuvastatin Calcium (Crestor) 40 Mg Tab, 40 MG PO DAILY, (Reported) RECEIVED LIPITOR 80MG AT [facility] Scheduled PRN Acetaminophen (Tylenol) 325 Mg Tablet, 650 MG PO QID PRN for PAIN, (Reported) Allergies Coded Allergies: Grape (Verified Allergy, Intermediate, HIVES, 04/21/12) metformin (Verified Adverse Reaction, Mild, UNABLE TO SWALLOW 1000MG TABLETS, 10/04/19) Past Medical History Medical History HTN, DM, HLD, obesity, remote history of kidney stones. LINDA, GERD Family History Significant Family History: No pertinent family hx Social History * Smoker: former Smoker Alcohol: other (former occasional drinker) Drugs: denies Recent Travel/Sick Contacts: Denies: Recent travel, Recent sick contacts Psychosocial History: No pertinent psych hx A-FIB/CHADSVASC A-FIB History Current/History of A-Fib/PAF?: No Current PO Anticoag Therapy: No Age/Risk Factor Scoring CHADSVASC: CHADSVASC Response (Comments) Value Age Risk Factor Age < 65 years old 0 Gender Risk Factor Female 1 Hx of CHF No 0 Hx of HTN Yes 1 Hx of Stroke/TIA/or VTE Yes 2 Hx of Diabetes Yes 1 Hx of Vascular Disease No 0 Total 5 Treatment Treatment ordered: NONE Reason Anticoagulant not given: Not indicated/[id number] Review of Systems Constitutional: Denies: Chills, Fever, Night Sweats Eyes: Denies: Pain, Vision change ENT: Denies: Head Aches, Ear Pain, Dysphagia Skin: Denies: Rash, Lesions, Breakdown Pulmonary: Denies: Dyspnea, Cough Cardiovascular: Denies: Chest Pain, Palpitations, Orthopnea, Paroxysmal Noc. Dyspnea, Lt Headedness Gastrointestinal: Denies: Nausea, Vomiting, Abdominal Pain, Diarrhea Genitourinary: Reports: Frequency, Hematuria (since placement of traumatic fol ey), Retention; Denies: Dysuria, Incontinence Hematologic: Denies: Bruising, Bleeding Excessively Endocrine: Denies: Polydipsia, Polyphagia, Polyuria, Heat Intolerance, Cold Intolerance, Other Endocrine Sx Musculoskeletal: Denies: Neck Pain, Back Pain, Joint Pain, Muscle Pain, Spasms Neurological: Denies: Weakness, Numbness, Change in speech, Confusion Psych: Reports: Mood Normal; Denies: Depression, Memory Issues Physical Examination General Exam: Positive: Alert, No Acute Distress Eye Exam: Positive: PERRLA, Conjunctiva & lids normal, EOMI; Negative: Sclera icteric ENT Exam: Positive: Atraumatic, Mucous membr. moist/pink, Pharynx Normal Neck Exam: Positive: Supple; Negative: JVD, thyromegaly Chest Exam: Positive: Clear to auscultation, Normal air movement; Negative: Rales, Rhonchi, Wheezing Heart Exam: Positive: Rate Normal, Regular Rhythm, Normal S1, Normal S2; Negative: Murmurs, Rubs Abdomen Exam: Positive: Normal bowel sounds, Soft, Other (obese); Negative: Tenderness, Hepatospenomegaly Extremity Exam: Positive: Normal pulses; Negative: Clubbing, Cyanosis, Edema Skin Exam: Positive: Nl turgor and temperature; Negative: Breakdown, Lesion Neuro Exam: Positive: Normal Speech, Strength at 5/5 X4 ext, Normal Tone, Sensation Intact, Cranial Nerves 3-12 NL, Reflexes 2+ Psych Exam: Positive: Mental status NL, Mood NL, Oriented x 3 Vital Signs Vital Signs Date Time Temp Pulse Resp B/P (MAP) Pulse Ox O2 Delivery O2 Flow Rate FiO2 10/05/19 06:00 97.5 84 18 125/71 (89) 98 Nasal Cannula 2.0 Laboratory Data Labs 24H Laboratory Tests 2 10/04/19 15:29: Immature Granulocyte % (Auto) 0.5, Neutrophils (%) (Auto) 57.2, Lymphocytes (%) (Auto) 32.6, Monocytes (%) (Auto) 6.1H, Eosinophils (%) (Auto) 3.0, Basophils (%) (Auto) 0.6, Neutrophils # (Auto) 5.5, Lymphocytes # (Auto) 3.1, Monocytes # (Auto) 0.6, Eosinophils # (Auto) 0.3, Basophils # (Auto) 0.1, Nucleated Red Blood Cells % (auto) 0.0, Anion Gap 6L, Glomerular Filtration Rate > 60.0, Calcium Level 8.6 10/04/19 16:38: Bedside Glucose (Misc Panel) 264H 10/04/19 18:50: Urine Color YELLOW, Urine Appearance CLOUDYH, Urine pH 6.0, Urine Specific [place] 1.039, Urine Protein 3+H, Urine Glucose (UA) 3+H, Urine Ketones NEGATIVE, Urine Blood 3+H, Urine Nitrite NEGATIVE, Urine Bilirubin NEGATIVE, Urine Urobilinogen 2.0H, Urine Leukocyte Esterase 1+H, Urine WBC (Auto) 62H, Urine RBC (Auto) TNTCH, Urine Hyaline Casts (Auto) 0, Urine Bacteria (Auto) 1+H, Urine Squamous Epithelial Cells 0, Urine Mucus (Auto) SMALL, Urine Sperm (Auto) 10/04/19 21:26: Bedside Glucose (Misc Panel) 174H 10/05/19 06:22: Immature Granulocyte % (Auto) 0.7, Neutrophils (%) (Auto) 54.6, Lymphocytes (%) (Auto) 31.5, Monocytes (%) (Auto) 8.1H, Eosinophils (%) (Auto) 4.4H, Basophils (%) (Auto) 0.7, Neutrophils # (Auto) 4.0, Lymphocytes # (Auto) 2.3, Monocytes # (Auto) 0.6, Eosinophils # (Auto) 0.3, Basophils # (Auto) 0.1, Nucleated Red Blood Cells % (auto) 0.0 10/05/19 06:40: Bedside Glucose (Misc Panel) 162H 10/05/19 11:36: Bedside Glucose (Misc Panel) 203H CBC/BMP Laboratory Tests 10/04/19 15:29 10/05/19 06:22 Microbiology Microbiology 10/04/19 Urine Culture, Received Pending 10/04/19 Blood Culture, Received Pending 10/04/19 Blood Culture, Received Pending Assessment/Plan 59 yo W with HTN, HLD, DM and former smoker who was admitted to the ARU from [facility] following a diagnosis of R MCA stroke with L sided weakness and admitted to the ARU with an indwelling sullivan catheter and found to have cystitis. Recent R MCA lacunar stroke: -was initially on ASA, plavix but had significant hematuria at placement if traumatic sullivan, now on ASA -continue lipitor -PM&R managing her acute rehabilitation Ongoing UTI: reports increased frequency, urge prior to admission, now with fole and CT showing bladder thickening -follow up pending UCx and sensitivities -for now, given that she is non-toxic with no leukocytosis, afebrile and hemodynamically stable, will empirically start keflex Mild bilateral hydronephrosis: etiology and chronicity remains unclear -will recheck with renal US on Tuesday and if resolved, will discontinue sullivan and do a voiding trial -may require urology referral at discharge if persistent HTN -continue home lisinopril DM -continue levemir and SSI, with FSBG ACHS and hypoglycemia protocol -consistent carbohydrate diet GERD: -continue pantoprazole Depression: -continue prozac Bowel regimen: -continue the current scheduled senna and docusate with PRN bisacodyl DVT ppx: lovenox Plan / VTE VTE Prophylaxis Ordered?: Yes CHELSY MANN MD Oct 05, 2019 14:27
[2019-10-05] MEDS: LACTOBACILLUS ACIDOPHILUS CAP (BACID) PO SCH ×2 (17:30→20:47)
[2019-10-05 20:00] VITALS: BP 106/60
[2019-10-05] MEDS: SENNA 8.6 MG TAB (SENOKOT) PO SCH (20:46)
[2019-10-05] MEDS: ATORVASTATIN 20 MG TAB PO SCH (20:46)
[2019-10-05] MEDS: LEVEMIR (INSULIN DETEMIR) 1 UNITS/0.01ML SC SCH (20:47)
[2019-10-06] MEDS: CEPHALEXIN 500 MG CAP PO SCH ×4 (00:20→17:21)
[2019-10-06 06:00] VITALS: BP 116/71
[2019-10-06] MEDS: HumaLOG INSULIN (NovoLOG) PER UNIT SC SCH ×4 (08:24→20:54)
[2019-10-06] MEDS: LACTOBACILLUS ACIDOPHILUS CAP (BACID) PO SCH ×3 (08:24→20:53)
[2019-10-06] MEDS: PANTOPRAZOLE 40MG TAB (PROTONIX) PO SCH (08:24)
[2019-10-06] MEDS: ASPIRIN 81 MG ENTERIC TAB PO SCH (08:24)
[2019-10-06] MEDS: DOCUSATE SODIUM 100 MG CAP PO SCH ×2 (08:25→20:53)
[2019-10-06] MEDS: FLUoxetine 10 MG CAP PO SCH (08:25)
[2019-10-06] MEDS: lisinopriL 5 MG TAB PO SCH (08:25)
[2019-10-06] MEDS: NYSTATIN 100,000 UNITS/GM TOPICAL PWD 15 GM TOP SCH ×2 (08:30→20:54)
[2019-10-06] MEDS: REMEDY PHYTOPLEX Z-GUARD PASTE 113GM TUBE (FROM STOREROOM PRODUCT) TOP SCH ×3 (08:30→20:54)
[2019-10-06] MEDS: TAMSULOSIN 0.4 MG CAP PO SCH (12:27)
[2019-10-06 14:00] VITALS: BP 115/64
[2019-10-06 20:00] VITALS: BP 121/55
[2019-10-06] MEDS: SENNA 8.6 MG TAB (SENOKOT) PO SCH (20:53)
[2019-10-06] MEDS: ATORVASTATIN 20 MG TAB PO SCH (20:53)
[2019-10-06] MEDS: LEVEMIR (INSULIN DETEMIR) 1 UNITS/0.01ML SC SCH (20:53)
[2019-10-06] MEDS: ACETAMINOPHEN TAB 650MG DOSE (2X325MG) PO PRN (20:59)
[2019-10-07] MEDS: CEPHALEXIN 500 MG CAP PO SCH ×4 (00:37→17:12)
[2019-10-07 06:00] VITALS: BP 130/74
[2019-10-07] MEDS: DOCUSATE SODIUM 100 MG CAP PO SCH ×2 (08:49→21:30)
[2019-10-07] MEDS: TAMSULOSIN 0.4 MG CAP PO SCH (08:49)
[2019-10-07] MEDS: lisinopriL 5 MG TAB PO SCH (08:49)
[2019-10-07] MEDS: ASPIRIN 81 MG ENTERIC TAB PO SCH (08:49)
[2019-10-07] MEDS: LACTOBACILLUS ACIDOPHILUS CAP (BACID) PO SCH ×3 (08:49→21:31)
[2019-10-07] MEDS: PANTOPRAZOLE 40MG TAB (PROTONIX) PO SCH (08:49)
[2019-10-07] MEDS: FLUoxetine 10 MG CAP PO SCH (08:49)
[2019-10-07] MEDS: HumaLOG INSULIN (NovoLOG) PER UNIT SC SCH ×4 (08:49→21:00)
[2019-10-07] MEDS: NYSTATIN 100,000 UNITS/GM TOPICAL PWD 15 GM TOP SCH ×2 (08:50→21:31)
[2019-10-07] MEDS: REMEDY PHYTOPLEX Z-GUARD PASTE 113GM TUBE (FROM STOREROOM PRODUCT) TOP SCH ×3 (08:50→21:32)
[2019-10-07 14:00] VITALS: BP 120/74
[2019-10-07 20:00] VITALS: BP 115/67
[2019-10-07] MEDS: ATORVASTATIN 20 MG TAB PO SCH (21:30)
[2019-10-07] MEDS: SENNA 8.6 MG TAB (SENOKOT) PO SCH (21:30)
[2019-10-07] MEDS: LEVEMIR (INSULIN DETEMIR) 1 UNITS/0.01ML SC SCH (21:31)
[2019-10-07] MEDS: ACETAMINOPHEN TAB 650MG DOSE (2X325MG) PO PRN (21:31)
[2019-10-08 06:00] VITALS: BP 128/62
[2019-10-08 07:21] LABS: BASO % 0.7 % (0.0-1.0); EOS # 0.1 10^3/uL (0.0-0.5); EOS % 2.4 % (0.0-3.0); HEMATOCRIT 36.1 % (36.0-47.0); HEMOGLOBIN 11.9 g/dl (12.0-15.5); LYMPH # 1.9 10^3/uL (1.5-5.0); LYMPH % 33.5 % (24.0-44.0); MEAN CORPUSCULAR HEMOGLOBIN 30.9 pg (27.0-33.0); MEAN CORPUSCULAR VOLUME 93.8 fl (80.0-96.0); MONO # 0.4 10^3/uL (0.0-0.8); MONO % 7.1 % (0.0-5.0); NEUTROPHILS # 3.2 10^3/uL (1.5-8.5); NEUTROPHILS % 55.6 % (36.0-66.0); PLATELET COUNT, AUTOMATED 205 10^3/uL (150-450); RED BLOOD COUNT 3.85 10^6/uL (4.00-5.40); WHITE BLOOD COUNT 5.8 10^3/uL (4.0-10.0)
[2019-10-08] MEDS: HumaLOG INSULIN (NovoLOG) PER UNIT SC SCH ×4 (07:27→21:00)
[2019-10-08 07:57] LABS: BLOOD UREA NITROGEN 19 MG/DL (7-18); CALCIUM LEVEL 8.2 MG/DL (8.5-10.1); CARBON DIOXIDE LEVEL 28 MEQ/L (21-32); CHLORIDE LEVEL 108 MEQ/L (98-107); CREATININE FOR GFR 0.74 MG/DL (0.55-1.30); GLOMERULAR FILTRATION RATE > 60.0 (>51); GLUCOSE, FASTING 110 MG/DL (70-100); POTASSIUM SERUM 4.4 MEQ/L (3.5-5.1); SODIUM LEVEL 141 MEQ/L (136-145)
[2019-10-08] MEDS: DOCUSATE SODIUM 100 MG CAP PO SCH ×2 (09:02→22:12)
[2019-10-08] MEDS: LACTOBACILLUS ACIDOPHILUS CAP (BACID) PO SCH ×3 (09:02→22:12)
[2019-10-08] MEDS: FLUoxetine 10 MG CAP PO SCH (09:02)
[2019-10-08] MEDS: ASPIRIN 81 MG ENTERIC TAB PO SCH (09:02)
[2019-10-08] MEDS: REMEDY PHYTOPLEX Z-GUARD PASTE 113GM TUBE (FROM STOREROOM PRODUCT) TOP SCH ×3 (09:03→21:00)
[2019-10-08] MEDS: PANTOPRAZOLE 40MG TAB (PROTONIX) PO SCH (09:03)
[2019-10-08] MEDS: lisinopriL 5 MG TAB PO SCH (09:03)
[2019-10-08] MEDS: TAMSULOSIN 0.4 MG CAP PO SCH (09:03)
[2019-10-08] MEDS: NYSTATIN 100,000 UNITS/GM TOPICAL PWD 15 GM TOP SCH ×2 (09:03→21:00)
[2019-10-08 14:00] VITALS: BP 134/76
--- NOTE | 2019-10-08 14:59 | IPNPDOC ---
PM&R Progress Note DATE OF SERVICE: Oct 08, 2019 [employer] Manager Progress Note Subjective: Patient seen in her room relieved to have the sullivan out, stating she has no fevers, chills, or flank pain. SHe reports she feels good being able to walk ernst und. REVIEW OF SYSTEMS: The following is a completed review of systems and has been reviewed. Review of systems otherwise unremarkable. PAIN: Patient self reports no pain EYES: No recent vision changes EARS, NOSE, & THROAT: No throat pain, or dysphagia, or rhinorrhea CARDIOVASCULAR: Denies chest pain or palpitations PULMONARY: Denies shortness of breath GASTROINTESTINAL: Denies constipation/diarrhea GENITOURINARY: +urinary retention and hematuria MUSCULOSKELETAL: +left lower back pain (improving) NEUROLOGICAL: generalized weakness HEMATOLOGICAL: denies easy bruising SKIN: + psoriasis sacrum, right elbow, and facial PSYCHIATRIC: Unremarkable All other review of systems found to be negative. PHYSICAL EXAMINATION: VITAL SIGNS: Please see below. GENERAL: Pleasant and cooperative. No acute distress. HEENT: PERRL. Extraocular movements intact. Clear conjunctiva CARDIOVASCULAR: Regular rate and rhythm. No murmurs, rubs, or gallops LUNGS: Clear to auscultation bilaterally. No wheezes. No rhonchi +Left sided mild CVA tenderness, no CVA tenderness on right side ABDOMEN: Soft, nontender, nondistended. Positive bowel sounds. Normal active bowel sounds NEUROLOGICAL: Alert and oriented times three. Cranial nerves II through XII grossly intact. Sensation grossly intact to light touch (-) babinski/clonus (-) extinction to touch EXTREMITIES: 5\\5 strength bilateral upper extremities. 5\\5 strength right lower extremity. 5/5 strength in left lower extremity. 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 Rehab- PT/OT advance gait and ADL training, stretch/strengthen/maintain ROM all 4 limbs, dynamic balance training- ambulating with cane 2.neuro: s/p multiple infarcts with generalized weakness, c/u ASA, plavix on ho ld in setting of hematuria -c/u statin and good BP control 3. Cardiac: hx of HTN c/u lisinopril-medicine consulted to assist in overall management 4. resp: hx of LINDA on CPAP, will order nocturnal 02 until patient can obtain home CPAP machine -pt with hx of smoking, CT thorax indicated Emphysema, c/u duonebs prn, encourage incentive spirometry and monitor for infection 5. Endo: hx of DM, patient on metformin at home, did not receive in [facility], will c/u to hold and c/u on insulin, monitor and adjust prn -consistent carb diet -TSH 09-29-19 elevated, however may be due to recent strokes-recommend f/u with PMD 6. /renal: patient with hematuria onset 10-01-19 following Sullivan traumatic insertion due to urinary retention-resolved -renal US 10-04-19 from [facility] shows possible right sided pyelonephritis, further was work-up not initiated and patient d/cd to ARU- on admission exam patient does not appear septic she has mild CVA tenderness on the left, none on the right, she continues to have hematuria -admission CT abdomen pelvic with and without contrast 10-04-19 did not reveal pyelonephritis, "Minimal bilateral hydroureteronephrosis without obstructing radiodense ureteral or bladder calculi. Punctate nonobstructing left renal calculus. No renal cortical mottling or striation." -blood cx negative -s/p 3 day course of Keflex, Ucx did not grow bacteria -c/u flomax for left sided kidney stone to assist in passage and and possible bladder outlet obstruction- sullivan d/c'd today will start TOV -f/u urology on d/c -renal fxn stable 7. Heme: monitor for blood loss anemia in setting of hematuria (resolved) and transfuse if Hgb <8 or if symptomatic-stable 8. GI ppx: protonix 9. DVT ppx: dopplers on 10-01-19 negative for DVT, patient with good overall strength and movement, will hold Lovenox in setting of hematuria and microhemorrhages on recent MRI, and c/u TEDs and ASA 10. Pain: Tylnenol prn 11. Dispo: 10-10-19 to home, progressing towards goals Allergies Coded Allergies: Grape (Verified Allergy, Intermediate, HIVES, 04/21/12) metformin (Verified Adverse Reaction, Mild, UNABLE TO SWALLOW 1000MG TABLETS, 10/04/19) Vital Signs Vital Signs Date Time Temp Pulse Resp B/P (MAP) Pulse Ox O2 Delivery O2 Flow Rate FiO2 10/08/19 09:03 128/62 10/08/19 06:00 98.2 74 17 98 Room Air 10/05/19 06:00 2.0 Laboratory Data CBC/BMP Laboratory Tests 10/08/19 07:06 Labs 24H Laboratory Tests 2 10/07/19 16:38: Bedside Glucose (Misc Panel) 218H 10/07/19 19:51: Bedside Glucose (Misc Panel) 181H 10/08/19 06:49: Bedside Glucose (Misc Panel) 100 10/08/19 07:06: Immature Granulocyte % (Auto) 0.7, Neutrophils (%) (Auto) 55.6, Lymphocytes (%) (Auto) 33.5, Monocytes (%) (Auto) 7.1H, Eosinophils (%) (Auto) 2.4, Basophils (%) (Auto) 0.7, Neutrophils # (Auto) 3.2, Lymphocytes # (Auto) 1.9, Monocytes # (Auto) 0.4, Eosinophils # (Auto) 0.1, Basophils # (Auto) 0.0, Nucleated Red Blood Cells % (auto) 0.0, Anion Gap 5L, Glomerular Filtration Rate > 60.0, Calcium Level 8.2L 10/08/19 11:25: Bedside Glucose (Misc Panel) 229H Microbiology Microbiology 10/04/19 Urine Culture - Final, Complete 10/04/19 Blood Culture - Preliminary, Resulted No Growth after 72 hours. All specime... 10/04/19 Blood Culture - Preliminary, Resulted No Growth after 72 hours. All specime... Current Medications Current Medications Current Medications Medications (Trade) Dose Ordered Sig/Jasbir Route PRN Reason Start Time Stop Time Status Last Admin Dose Admin Acetaminophen (Tylenol Tab) 650 mg Q4HP PRN PO fever/MILD PAIN (PS 1-4) 10/04/19 15:30 10/07/19 21:31 Albuterol/ Ipratropium (Duoneb (Ipr 0.5mg/Alb 2.5mg)) 3 ml TID PRN NEB wheeze 10/04/19 15:30 Aspirin (Ecotrin) 81 mg DAILY PO 10/05/19 09:00 10/08/19 09:02 Atorvastatin Calcium (Lipitor) 80 mg QHS PO 10/04/19 21:00 10/07/19 21:30 Bisacodyl (Dulcolax Suppository) 10 mg DAILYPRN PRN OR CONSTIPATION 10/04/19 15:30 Cephalexin Monohydrate (Keflex) 500 mg Q6H PO 10/05/19 06:00 10/07/19 23:00 DC 10/07/19 17:12 Dextrose (Dextrose 50%) 25 ml ASDIRECTED PRN IV SEE LABEL COMMENTS 10/04/19 14:30 Cancel Dextrose (Dextrose 50%) 25 ml ASDIRECTED PRN IV SEE LABEL COMMENTS 10/04/19 15:30 Docusate Sodium (Colace) 100 mg BID PO 10/04/19 21:00 10/08/19 09:02 Enoxaparin Sodium (Lovenox) 40 mg DAILY SC 10/05/19 09:00 10/04/19 17:19 DC Fluoxetine HCl (PROzac) 10 mg DAILY PO 10/05/19 09:00 10/08/19 09:02 Glucagon (Glucagon) 1 mg ASDIRECTED PRN SC SEE LABEL COMMENTS 10/04/19 14:30 Cancel Glucagon (Glucagon) 1 mg ASDIRECTED PRN SC SEE LABEL COMMENTS 10/04/19 15:30 Glucose (Glucose) 16 GM ASDIRECTED PRN PO SEE LABEL COMMENTS 10/04/19 14:30 Cancel Glucose (Glucose) 16 GM ASDIRECTED PRN PO SEE LABEL COMMENTS 10/04/19 15:30 Home Med (Med Rec Complete!) ASDIRECTED XX 10/04/19 15:15 10/04/19 15:04 DC Insulin Detemir (Levemir Insulin) 40 units QHS SC 10/04/19 21:00 10/07/19 21:31 Insulin Human Lispro (HumaLOG INSULIN) SEE PROTOCOL TABLE AC SC 10/04/19 17:30 10/08/19 11:58 Insulin Human Lispro (HumaLOG INSULIN) SEE PROTOCOL TABLE AC SC 10/04/19 17:30 Cancel Insulin Human Lispro (HumaLOG INSULIN) SEE PROTOCOL TABLE Q SC 10/04/19 21:00 Insulin Human Lispro (HumaLOG INSULIN) SEE PROTOCOL TABLE Q SC 10/04/19 21:00 Cancel Lactobacillus Acidophilus (Bacid) 1 ea TID PO 10/05/19 16:00 10/08/19 09:02 Levofloxacin (Levaquin) 750 mg DAILY@06 PO 10/05/19 11:00 10/05/19 11:08 DC Lidocaine HCl (Lidocaine 2% Jelly) 1 dose ASDIRECTED TOP 10/08/19 11:45 Lisinopril (Prinivil) 5 mg DAILY PO 10/05/19 09:00 10/08/19 09:03 Nystatin (Mycostatin Powder, Nystop) apply under breasts BID TOP 10/05/19 09:00 10/08/19 09:03 Pantoprazole Sodium (Protonix) 40 mg DAILY PO 10/05/19 09:00 10/08/19 09:03 Senna (Senokot) 1 tab QHS PO 10/04/19 21:00 10/07/19 21:30 Tamsulosin HCl (Flomax) 0.4 mg DAILY PO 10/06/19 09:00 10/08/19 09:03 DEX ALEXANDER MD Oct 08, 2019 14:59
[2019-10-08 20:00] VITALS: BP 146/64
[2019-10-08] MEDS: SENNA 8.6 MG TAB (SENOKOT) PO SCH (22:12)
[2019-10-08] MEDS: LEVEMIR (INSULIN DETEMIR) 1 UNITS/0.01ML SC SCH (22:13)
[2019-10-08] MEDS: ATORVASTATIN 20 MG TAB PO SCH (22:13)
[2019-10-08] MEDS: LIDOCAINE 2% JELLY 30ML TOP SCH (23:54)
[2019-10-09 06:00] VITALS: BP 131/77
[2019-10-09] MEDS: LIDOCAINE 2% JELLY 30ML TOP SCH ×3 (07:12→22:29)
[2019-10-09 08:33] LABS: BASO # 0.1 10^3/uL (0.0-0.2); EOS # 0.1 10^3/uL (0.0-0.5); EOS % 1.6 % (0.0-3.0); HEMATOCRIT 37.4 % (36.0-47.0); HEMOGLOBIN 12.3 g/dl (12.0-15.5); LYMPH # 1.6 10^3/uL (1.5-5.0); LYMPH % 26.7 % (24.0-44.0); MEAN CORPUSCULAR HEMOGLOBIN 30.9 pg (27.0-33.0); MEAN CORPUSCULAR HGB CONC 32.9 g/dl (32.0-36.5); MONO # 0.4 10^3/uL (0.0-0.8); MONO % 5.9 % (0.0-5.0); NEUTROPHILS % 64.3 % (36.0-66.0); PLATELET COUNT, AUTOMATED 227 10^3/uL (150-450); RED BLOOD COUNT 3.98 10^6/uL (4.00-5.40); WHITE BLOOD COUNT 6.1 10^3/uL (4.0-10.0)
[2019-10-09] MEDS: LACTOBACILLUS ACIDOPHILUS CAP (BACID) PO SCH ×3 (08:44→21:16)
[2019-10-09] MEDS: FLUoxetine 10 MG CAP PO SCH (08:44)
[2019-10-09] MEDS: PANTOPRAZOLE 40MG TAB (PROTONIX) PO SCH (08:44)
[2019-10-09] MEDS: lisinopriL 5 MG TAB PO SCH (08:44)
[2019-10-09] MEDS: HumaLOG INSULIN (NovoLOG) PER UNIT SC SCH ×4 (08:44→21:00)
[2019-10-09] MEDS: TAMSULOSIN 0.4 MG CAP PO SCH (08:44)
[2019-10-09] MEDS: ASPIRIN 81 MG ENTERIC TAB PO SCH (08:44)
[2019-10-09] MEDS: NYSTATIN 100,000 UNITS/GM TOPICAL PWD 15 GM TOP SCH ×2 (08:45→21:21)
[2019-10-09] MEDS: REMEDY PHYTOPLEX Z-GUARD PASTE 113GM TUBE (FROM STOREROOM PRODUCT) TOP SCH ×3 (08:45→21:00)
[2019-10-09] MEDS: DOCUSATE SODIUM 100 MG CAP PO SCH ×2 (08:47→21:00)
[2019-10-09 14:00] VITALS: BP 126/74
--- NOTE | 2019-10-09 16:06 | IPNPDOC ---
PM&R Progress Note DATE OF SERVICE: Oct 09, 2019 Lacing Cutter Progress Note Subjective: Patient seen in her room stating she feels well and is trying to urinate on her own. REVIEW OF SYSTEMS: The following is a completed review of systems and has been reviewed. Review of systems otherwise unremarkable. PAIN: Patient self reports no pain EYES: No recent vision changes EARS, NOSE, & THROAT: No throat pain, or dysphagia, or rhinorrhea CARDIOVASCULAR: Denies chest pain or palpitations PULMONARY: Denies shortness of breath GASTROINTESTINAL: Denies constipation/diarrhea GENITOURINARY: +urinary retention, hematuria (resolved) MUSCULOSKELETAL: +left lower back pain (improving) NEUROLOGICAL: generalized weakness HEMATOLOGICAL: denies easy bruising SKIN: + psoriasis sacrum, right elbow, and facial PSYCHIATRIC: Unremarkable All other review of systems found to be negative. PHYSICAL EXAMINATION: VITAL SIGNS: Please see below. GENERAL: Pleasant and cooperative. No acute distress. HEENT: PERRL. Extraocular movements intact. Clear conjunctiva CARDIOVASCULAR: Regular rate and rhythm. No murmurs, rubs, or gallops LUNGS: Clear to auscultation bilaterally. No wheezes. No rhonchi +Left sided mild CVA tenderness, no CVA tenderness on right side ABDOMEN: Soft, nontender, nondistended. Positive bowel sounds. Normal active bowel sounds NEUROLOGICAL: Alert and oriented times three. Cranial nerves II through XII grossly intact. Sensation grossly intact to light touch (-) babinski/clonus (-) extinction to touch EXTREMITIES: 5\\5 strength bilateral upper extremities. 5\\5 strength right lower extremity. 5/5 strength in left lower extremity. 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 Rehab- PT/OT advance gait and ADL training, stretch/strengthen/maintain ROM all 4 limbs, dynamic balance training- ambulating with cane 2.neuro: s/p multiple infarcts with generalized weakness, c/u ASA, plavix on hold in setting of hematuria -c/u statin and good BP control 3. Cardiac: hx of HTN c/u lisinopril-medicine consulted to assist in overall management 4. resp: hx of LINDA on CPAP, will order nocturnal 02 until patient can obtain home CPAP machine -pt with hx of smoking, CT thorax indicated Emphysema, c/u duonebs prn, encourage incentive spirometry and monitor for infection 5. Endo: hx of DM, patient on metformin at home, did not receive in [facility], will c/u to hold and c/u on insulin, monitor and adjust prn -consistent carb diet -TSH 09-29-19 elevated, however may be due to recent strokes-recommend f/u with PMD 6. /renal: patient with hematuria onset 10-01-19 following Sullivan traumatic insertion due to urinary retention-resolved -renal US 10-04-19 from [facility] shows possible right sided pyelonephritis, further was work-up not initiated and patient d/cd to ARU- on admission exam patient does not appear septic she has mild CVA tenderness on the left, none on the right, she continues to have hematuria -admission CT abdomen pelvic with and without contrast 10-04-19 did not reveal pyelonephritis, "Minimal bilateral hydroureteronephrosis without obstructing radiodense ureteral or bladder calculi. Punctate nonobstructing left renal calculus. No renal cortical mottling or striation." -blood cx negative -s/p 3 day course of Keflex, Ucx did not grow bacteria -c/u flomax for left sided kidney stone to assist in passage and and possible bladder outlet obstruction- sullivan d/c'd 10-08-19, PVRs still high, but starting to improve, will c/u TOV -f/u urology on d/c-will refer to Dr. Graham -renal fxn stable 7. Heme: monitor for blood loss anemia in setting of hematuria (resolved) and transfuse if Hgb <8 or if symptomatic-stable 8. GI ppx: protonix 9. DVT ppx: dopplers on 10-01-19 negative for DVT, patient with good overall strength and movement, will hold Lovenox in setting of hematuria and microhemorrhages on recent MRI, and c/u TEDs and ASA 10. Pain: Tylnenol prn 11. Dispo: 10-11-19 to home, progressing towards goals, staying an additional day to c/u TOV and if does not work to reinforce leg-bag training Allergies Coded Allergies: Grape (Verified Allergy, Intermediate, HIVES, 04/21/12) metformin (Verified Adverse Reaction, Mild, UNABLE TO SWALLOW 1000MG TABLETS, 10/04/19) Vital Signs Vital Signs Date Time Temp Pulse Resp B/P (MAP) Pulse Ox O2 Delivery O2 Flow Rate FiO2 10/09/19 14:00 97.5 79 19 126/74 (91) 100 Room Air 10/05/19 06:00 2.0 Laboratory Data CBC/BMP Laboratory Tests 10/09/19 08:11 Labs 24H Laboratory Tests 2 10/08/19 16:21: Bedside Glucose (Misc Panel) 173H 10/08/19 19:55: Bedside Glucose (Misc Panel) 167H 10/09/19 05:39: Bedside Glucose (Misc Panel) 172H 10/09/19 08:11: Immature Granulocyte % (Auto) 0.5, Neutrophils (%) (Auto) 64.3, Lymphocytes (%) (Auto) 26.7, Monocytes (%) (Auto) 5.9H, Eosinophils (%) (Auto) 1.6, Basophils (%) (Auto) 1.0, Neutrophils # (Auto) 4.0, Lymphocytes # (Auto) 1.6, Monocytes # (Auto) 0.4, Eosinophils # (Auto) 0.1, Basophils # (Auto) 0.1, Nucleated Red Blood Cells % (auto) 0.0 10/09/19 11:36: Bedside Glucose (Misc Panel) 162H Microbiology Microbiology 10/04/19 Urine Culture - Final, Complete 10/04/19 Blood Culture - Final, Complete NO GROWTH AFTER 5 DAYS 10/04/19 Blood Culture - Final, Complete NO GROWTH AFTER 5 DAYS Current Medications Current Medications Current Medications Medications (Trade) Dose Ordered Sig/Jasbir Route PRN Reason Start Time Stop Time Status Last Admin Dose Admin Acetaminophen (Tylenol Tab) 650 mg Q4HP PRN PO fever/MILD PAIN (PS 1-4) 10/04/19 15:30 10/07/19 21:31 Albuterol/ Ipratropium (Duoneb (Ipr 0.5mg/Alb 2.5mg)) 3 ml TID PRN NEB wheeze 10/04/19 15:30 Aspirin (Ecotrin) 81 mg DAILY PO 10/05/19 09:00 10/09/19 08:44 Atorvastatin Calcium (Lipitor) 80 mg QHS PO 10/04/19 21:00 10/08/19 22:13 Bisacodyl (Dulcolax Suppository) 10 mg DAILYPRN PRN [place] CONSTIPATION 10/04/19 15:30 Cephalexin Monohydrate (Keflex) 500 mg Q6H PO 10/05/19 06:00 10/07/19 23:00 DC 10/07/19 17:12 Dextrose (Dextrose 50%) 25 ml ASDIRECTED PRN IV SEE LABEL COMMENTS 10/04/19 14:30 Cancel Dextrose (Dextrose 50%) 25 ml ASDIRECTED PRN IV SEE LABEL COMMENTS 10/04/19 15:30 Docusate Sodium (Colace) 100 mg BID PO 10/04/19 21:00 10/08/19 22:12 Enoxaparin Sodium (Lovenox) 40 mg DAILY SC 10/05/19 09:00 10/04/19 17:19 DC Fluoxetine HCl (PROzac) 10 mg DAILY PO 10/05/19 09:00 10/09/19 08:44 Glucagon (Glucagon) 1 mg ASDIRECTED PRN SC SEE LABEL COMMENTS 10/04/19 14:30 Cancel Glucagon (Glucagon) 1 mg ASDIRECTED PRN SC SEE LABEL COMMENTS 10/04/19 15:30 Glucose (Glucose) 16 GM ASDIRECTED PRN PO SEE LABEL COMMENTS 10/04/19 14:30 Cancel Glucose (Glucose) 16 GM ASDIRECTED PRN PO SEE LABEL COMMENTS 10/04/19 15:30 Home Med (Med Rec Complete!) ASDIRECTED XX 10/04/19 15:15 10/04/19 15:04 DC Insulin Detemir (Levemir Insulin) 40 units QHS SC 10/04/19 21:00 10/08/19 22:13 Insulin Human Lispro (HumaLOG INSULIN) SEE PROTOCOL TABLE AC SC 10/04/19 17:30 10/09/19 11:41 Insulin Human Lispro (HumaLOG INSULIN) SEE PROTOCOL TABLE AC SC 10/04/19 17:30 Cancel Insulin Human Lispro (HumaLOG INSULIN) SEE PROTOCOL TABLE QHS SC 10/04/19 21:00 Insulin Human Lispro (HumaLOG INSULIN) SEE PROTOCOL TABLE QHS SC 10/04/19 21:00 Cancel Lactobacillus Acidophilus (Bacid) 1 ea TID PO 10/05/19 16:00 10/09/19 08:44 Levofloxacin (Levaquin) 750 mg DAILY@06 PO 10/05/19 11:00 10/05/19 11:08 DC Lidocaine HCl (Lidocaine 2% Jelly) 1 dose ASDIRECTED TOP 10/08/19 11:45 10/09/19 07:12 Lisinopril (Prinivil) 5 mg DAILY PO 10/05/19 09:00 10/09/19 08:44 Nystatin (Mycostatin Powder, Nystop) apply under breasts BID TOP 10/05/19 09:00 10/09/19 08:45 Pantoprazole Sodium (Protonix) 40 mg DAILY PO 10/05/19 09:00 10/09/19 08:44 Senna (Senokot) 1 tab QHS PO 10/04/19 21:00 10/08/19 22:12 Tamsulosin HCl (Flomax) 0.4 mg DAILY PO 10/06/19 09:00 10/09/19 08:44 DEX ALEXANDER MD Oct 09, 2019 16:06
[2019-10-09 20:00] VITALS: BP 109/64
[2019-10-09] MEDS: SENNA 8.6 MG TAB (SENOKOT) PO SCH (21:00)
[2019-10-09] MEDS: ATORVASTATIN 20 MG TAB PO SCH (21:16)
[2019-10-09] MEDS: LEVEMIR (INSULIN DETEMIR) 1 UNITS/0.01ML SC SCH (21:16)
[2019-10-10 06:00] VITALS: BP 142/75
[2019-10-10] MEDS: LIDOCAINE 2% JELLY 30ML TOP SCH (07:00)
[2019-10-10] MEDS: HumaLOG INSULIN (NovoLOG) PER UNIT SC SCH ×4 (07:30→21:00)
[2019-10-10] MEDS: ASPIRIN 81 MG ENTERIC TAB PO SCH (09:47)
[2019-10-10] MEDS: FLUoxetine 10 MG CAP PO SCH (09:47)
[2019-10-10] MEDS: lisinopriL 5 MG TAB PO SCH (09:47)
[2019-10-10] MEDS: PANTOPRAZOLE 40MG TAB (PROTONIX) PO SCH (09:47)
[2019-10-10] MEDS: TAMSULOSIN 0.4 MG CAP PO SCH (09:47)
[2019-10-10] MEDS: LACTOBACILLUS ACIDOPHILUS CAP (BACID) PO SCH ×3 (09:47→21:03)
[2019-10-10] MEDS: DOCUSATE SODIUM 100 MG CAP PO SCH ×2 (09:48→21:03)
[2019-10-10] MEDS: REMEDY PHYTOPLEX Z-GUARD PASTE 113GM TUBE (FROM STOREROOM PRODUCT) TOP SCH ×3 (09:49→21:00)
[2019-10-10] MEDS: NYSTATIN 100,000 UNITS/GM TOPICAL PWD 15 GM TOP SCH ×2 (09:49→21:05)
[2019-10-10] MEDS ORDERED: ATOR80TA59 PO (11:20)
[2019-10-10] MEDS ORDERED: ASPI81TAEC PO (11:20)
[2019-10-10] MEDS ORDERED: PANT40TA3 PO (11:20)
[2019-10-10] MEDS ORDERED: INSUHUMDS SC (11:20)
[2019-10-10] MEDS ORDERED: FLOM0.4C39 PO (11:20)
[2019-10-10] MEDS ORDERED: INSUDET SC (11:20)
[2019-10-10] MEDS ORDERED: FLUO10CA15 PO (11:20)
[2019-10-10] MEDS ORDERED: CLOP75TA2 PO (11:20)
[2019-10-10] MEDS ORDERED: LISI-542 PO (11:20)
[2019-10-10] MEDS: ACETAMINOPHEN TAB 650MG DOSE (2X325MG) PO PRN (11:45)
[2019-10-10] MEDS: CLOPIDOGREL 75 MG TAB PO SCH (11:45)
--- NOTE | 2019-10-10 12:47 | IPNPDOC ---
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 REVIEW OF SYSTEMS: The following is a completed review of systems and has been reviewed. Review of systems otherwise unremarkable. PAIN: Patient self reports no pain EYES: No recent vision changes EARS, NOSE, & THROAT: No throat pain, or dysphagia, or rhinorrhea CARDIOVASCULAR: Denies chest pain or palpitations PULMONARY: Denies shortness of breath GASTROINTESTINAL: Denies constipation/diarrhea GENITOURINARY: +urinary retention, hematuria (resolved) MUSCULOSKELETAL: +left lower back pain (improving) NEUROLOGICAL: generalized weakness HEMATOLOGICAL: denies easy bruising SKIN: + psoriasis sacrum, right elbow, and facial PSYCHIATRIC: Unremarkable All other review of systems found to be negative. PHYSICAL EXAMINATION: VITAL SIGNS: Please see below. GENERAL: Pleasant and cooperative. No acute distress. HEENT: PERRL. Extraocular movements intact. Clear conjunctiva CARDIOVASCULAR: Regular rate and rhythm. No murmurs, rubs, or gallops LUNGS: Clear to auscultation bilaterally. No wheezes. No rhonchi +Left sided mild CVA tenderness, no CVA tenderness on right side ABDOMEN: Soft, nontender, nondistended. Positive bowel sounds. Normal active bowel sounds NEUROLOGICAL: Alert and oriented times three. Cranial nerves II through XII grossly intact. Sensation grossly intact to light touch (-) babinski/clonus (-) extinction to touch EXTREMITIES: 5\\5 strength bilateral upper extremities. 5\\5 strength right lower extremity. 5/5 strength in left lower extremity. 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 Rehab- PT/OT advance gait and ADL training, stretch/strengthen/maintain ROM all 4 limbs, dynamic balance training- ambulating with cane 2.neuro: s/p multiple infarcts with generalized weakness, c/u ASA, will restart plavix today since hematuria has resolved and will monitor wile sullivan is still in place- f/[place] monitoring -c/u statin and good BP control 3. Cardiac: hx of HTN c/u lisinopril-medicine consulted to assist in overall management -referral sent for loop recorder 4. resp: hx of LINDA on CPAP, will order nocturnal 02 until patient can obtain home CPAP machine -pt with hx of smoking, CT thorax indicated Emphysema, c/u duonebs prn, encourage incentive spirometry and monitor for infection 5. Endo: hx of DM, patient on metformin at home, did not receive in [facility], will c/u to hold and c/u on insulin, monitor and adjust prn -consistent carb diet -TSH 09-29-19 elevated, however may be due to recent strokes-recommend f/u with PMD 6. /renal: patient with hematuria onset 10-01-19 following Sullivan traumatic insertion due to urinary retention-resolved -renal US 10-04-19 from [facility] shows possible right sided pyelonephritis, further was work-up not initiated and patient d/cd to ARU- on admission exam patient does not appear septic she has mild CVA tenderness on the left, none on the right, she continues to have hematuria -admission CT abdomen pelvic with and without contrast 10-04-19 did not reveal pyelonephritis, "Minimal bilateral hydroureteronephrosis without obstructing radiodense ureteral or bladder calculi. Punctate nonobstructing left renal calculus. No renal cortical mottling or striation." -blood cx negative -s/p 3 day course of Keflex, Ucx did not grow bacteria -c/u flomax for left sided kidney stone to assist in passage and and possible bladder outlet obstruction- sullivan d/c'd 10-08-19 however patient failed TOV, Sullivan replaced today with some difficulty (atraumatic) due to unusual anatomy- do not recommend self-cath at home given difficult anatomy -f/u urology on d/c-will refer to Dr. Graham -renal fxn stable 7. Heme: monitor for blood loss anemia in setting of hematuria (resolved) and transfuse if Hgb <8 or if symptomatic-stable 8. GI ppx: protonix 9. DVT ppx: dopplers on 10-01-19 negative for DVT, patient with good overall strength and movement, will hold Lovenox in setting of hematuria and microhemorrhages on recent MRI, and c/u TEDs and ASA 10. Pain: Tylenol prn 11. Dispo: 10-11-19 to home, progressing towards goals, Sullivan reinserted 10-10-19, will stay on until tomorrow for further Sullivan management Allergies Coded Allergies: Grape (Verified Allergy, Intermediate, HIVES, 04/21/12) metformin (Verified Adverse Reaction, Mild, UNABLE TO SWALLOW 1000MG TABLETS, 10/04/19) Vital Signs Vital Signs Date Time Temp Pulse Resp B/P (MAP) Pulse Ox O2 Delivery O2 Flow Rate FiO2 10/10/19 06:00 97.1 79 18 142/75 (97) 98 Room Air 10/05/19 06:00 2.0 Laboratory Data Labs 24H Laboratory Tests 2 10/09/19 16:25: Bedside Glucose (Misc Panel) 216H 10/09/19 20:01: Bedside Glucose (Misc Panel) 139H 10/10/19 06:52: Bedside Glucose (Misc Panel) 87 10/10/19 11:36: Bedside Glucose (Misc Panel) 177H Microbiology Microbiology 10/04/19 Urine Culture - Final, Complete 10/04/19 Blood Culture - Final, Complete NO GROWTH AFTER 5 DAYS 10/04/19 Blood Culture - Final, Complete NO GROWTH AFTER 5 DAYS Current Medications Current Medications Current Medications Medications (Trade) Dose Ordered Sig/Jasbir Route PRN Reason Start Time Stop Time Status Last Admin Dose Admin Acetaminophen (Tylenol Tab) 650 mg Q4HP PRN PO fever/MILD PAIN (PS 1-4) 10/04/19 15:30 10/10/19 11:45 Albuterol/ Ipratropium (Duoneb (Ipr 0.5mg/Alb 2.5mg)) 3 ml TID PRN NEB wheeze 10/04/19 15:30 Aspirin (Ecotrin) 81 mg DAILY PO 10/05/19 09:00 10/10/19 09:47 Atorvastatin Calcium (Lipitor) 80 mg QHS PO 10/04/19 21:00 10/09/19 21:16 Bisacodyl (Dulcolax Suppository) 10 mg DAILYPRN PRN [place] CONSTIPATION 10/04/19 15:30 Cephalexin Monohydrate (Keflex) 500 mg Q6H PO 10/05/19 06:00 10/07/19 23:00 DC 10/07/19 17:12 Clopidogrel Bisulfate (PLAVix) 75 mg DAILY PO 10/10/19 11:15 10/10/19 11:45 Dextrose (Dextrose 50%) 25 ml ASDIRECTED PRN IV SEE LABEL COMMENTS 10/04/19 14:30 Cancel Dextrose (Dextrose 50%) 25 ml ASDIRECTED PRN IV SEE LABEL COMMENTS 10/04/19 15:30 Docusate Sodium (Colace) 100 mg BID PO 10/04/19 21:00 10/10/19 09:48 Enoxaparin Sodium (Lovenox) 40 mg DAILY SC 10/05/19 09:00 10/04/19 17:19 DC Fluoxetine HCl (PROzac) 10 mg DAILY PO 10/05/19 09:00 10/10/19 09:47 Glucagon (Glucagon) 1 mg ASDIRECTED PRN SC SEE LABEL COMMENTS 10/04/19 14:30 Cancel Glucagon (Glucagon) 1 mg ASDIRECTED PRN SC SEE LABEL COMMENTS 10/04/19 15:30 Glucose (Glucose) 16 GM ASDIRECTED PRN PO SEE LABEL COMMENTS 10/04/19 14:30 Cancel Glucose (Glucose) 16 GM ASDIRECTED PRN PO SEE LABEL COMMENTS 10/04/19 15:30 Home Med (Med Rec Complete!) ASDIRECTED XX 10/04/19 15:15 10/04/19 15:04 DC Insulin Detemir (Levemir Insulin) 40 units QHS MS 10/04/19 21:00 10/09/19 21:16 Insulin Human Lispro (HumaLOG INSULIN) SEE PROTOCOL TABLE AC MS 10/04/19 17:30 10/10/19 11:46 Insulin Human Lispro (HumaLOG INSULIN) SEE PROTOCOL TABLE AC MS 10/04/19 17:30 Cancel Insulin Human Lispro (HumaLOG INSULIN) [facility] 10/04/[facility] 21:00 Insulin Human Lispro (HumaLOG INSULIN) [facility] 10/04/19 21:00 Cancel Lactobacillus Acidophilus (Bacid) 1 ea TID PO 10/05/19 16:00 10/10/19 09:47 Levofloxacin (Levaquin) 750 mg DAILY@06 PO 10/05/19 11:00 10/05/19 11:08 DC Lidocaine HCl (Lidocaine 2% Jelly) 1 dose ASDIRECTED TOP 10/08/19 11:45 10/10/19 07:00 Lisinopril (Prinivil) 5 mg DAILY PO 10/05/19 09:00 10/10/19 09:47 Nystatin (Mycostatin Powder, Nystop) apply under breasts BID TOP 10/05/19 09:00 10/10/19 09:49 Pantoprazole Sodium (Protonix) 40 mg DAILY PO 10/05/19 09:00 10/10/19 09:47 Senna (Senokot) 1 tab QHS PO 10/04/19 21:00 10/08/19 22:12 Tamsulosin HCl (Flomax) 0.4 mg DAILY PO 10/06/19 09:00 10/10/19 09:47 DEX ALEXANDER MD Oct 10, 2019 12:47
[2019-10-10 14:00] VITALS: BP 113/65
[2019-10-10 20:00] VITALS: BP 146/65
[2019-10-10] MEDS: SENNA 8.6 MG TAB (SENOKOT) PO SCH (21:03)
[2019-10-10] MEDS: ATORVASTATIN 20 MG TAB PO SCH (21:03)
[2019-10-10] MEDS: LEVEMIR (INSULIN DETEMIR) 1 UNITS/0.01ML SC SCH (21:04)
[2019-10-11 06:00] VITALS: BP 116/16
[2019-10-11] MEDS: HumaLOG INSULIN (NovoLOG) PER UNIT SC SCH (08:29)
[2019-10-11 08:30] VITALS: BP 120/60
[2019-10-11] MEDS: PANTOPRAZOLE 40MG TAB (PROTONIX) PO SCH (08:30)
[2019-10-11] MEDS: CLOPIDOGREL 75 MG TAB PO SCH (08:30)
[2019-10-11] MEDS: TAMSULOSIN 0.4 MG CAP PO SCH (08:30)
[2019-10-11] MEDS: ASPIRIN 81 MG ENTERIC TAB PO SCH (08:30)
[2019-10-11] MEDS: FLUoxetine 10 MG CAP PO SCH (08:30)
[2019-10-11] MEDS: LACTOBACILLUS ACIDOPHILUS CAP (BACID) PO SCH (08:30)
[2019-10-11] MEDS: lisinopriL 5 MG TAB PO SCH (08:30)
[2019-10-11] MEDS: DOCUSATE SODIUM 100 MG CAP PO SCH (08:30)
[2019-10-11] MEDS: NYSTATIN 100,000 UNITS/GM TOPICAL PWD 15 GM TOP SCH (08:31)
[2019-10-11] MEDS: REMEDY PHYTOPLEX Z-GUARD PASTE 113GM TUBE (FROM STOREROOM PRODUCT) TOP SCH (08:31)
[2019-10-11 11:03] LABS: BASO # 0.1 10^3/uL (0.0-0.2); BASO % 0.7 % (0.0-1.0); EOS # 0.2 10^3/uL (0.0-0.5); EOS % 2.6 % (0.0-3.0); HEMATOCRIT 34.7 % (36.0-47.0); HEMOGLOBIN 11.6 g/dl (12.0-15.5); LYMPH # 1.7 10^3/uL (1.5-5.0); LYMPH % 24.8 % (24.0-44.0); MEAN CORPUSCULAR HEMOGLOBIN 31.3 pg (27.0-33.0); MEAN CORPUSCULAR HGB CONC 33.4 g/dl (32.0-36.5); MEAN CORPUSCULAR VOLUME 93.5 fl (80.0-96.0); MONO # 0.5 10^3/uL (0.0-0.8); MONO % 6.7 % (0.0-5.0); NEUTROPHILS # 4.5 10^3/uL (1.5-8.5); NEUTROPHILS % 64.8 % (36.0-66.0); PLATELET COUNT, AUTOMATED 207 10^3/uL (150-450); RED BLOOD COUNT 3.71 10^6/uL (4.00-5.40)
[2019-10-11] MEDS ORDERED: [UNRECOGNIZED DRUG - CODE] XX (11:18)
[2019-10-11] MEDS ORDERED: ONETMIS7 TOP (11:20)
[2019-10-11 11:33] LABS: BLOOD UREA NITROGEN 20 MG/DL (7-18); CALCIUM LEVEL 8.6 MG/DL (8.5-10.1); CARBON DIOXIDE LEVEL 27 MEQ/L (21-32); CHLORIDE LEVEL 103 MEQ/L (98-107); CREATININE FOR GFR 0.84 MG/DL (0.55-1.30); GLOMERULAR FILTRATION RATE > 60.0 (>51); GLUCOSE, FASTING 251 MG/DL (70-100); POTASSIUM SERUM 4.7 MEQ/L (3.5-5.1); SODIUM LEVEL 137 MEQ/L (136-145)
== END 2019-10-11 12:30 | disposition home health service (06) | DRG 58 ==
LOC: M PM&R 14:23
PROVIDERS: ADMIT Physical Medicine & Rehabilitation; ATTEND Physical Medicine & Rehabilitation
DX: I69.398 Other sequelae of cerebral infarction (principal); I10 Essential (primary) hypertension; E11.9 Type 2 diabetes mellitus without complications; E78.5 Hyperlipidemia, unspecified; E66.9 Obesity, unspecified; R33.9 Retention of urine, unspecified; M54.5 Low back pain; L40.9 Psoriasis, unspecified; R53.1 Weakness; N13.30 Unspecified hydronephrosis; J43.9 Emphysema, unspecified; R31.9 Hematuria, unspecified; L98.499 Non-pressure chronic ulcer of skin of other sites with unspecified severity; N20.1 Calculus of ureter; R26.89 Other abnormalities of gait and mobility; G47.33 Obstructive sleep apnea (adult) (pediatric); Z87.442 Personal history of urinary calculi; Z87.891 Personal history of nicotine dependence; Z79.82 Long term (current) use of aspirin; Z79.4 Long term (current) use of insulin; Z79.899 Other long term (current) drug therapy; Z88.8 Allergy status to other drugs, medicaments and biological substances; Z91.018 Allergy to other foods

== ENCOUNTER → 2019-10-31 | Outpatient (CLI) | payer OTHER ==
[~2019-10-31] MED LIST changes: +ACET-907 PO; +ASPI81TAEC PO; +BACT800T5 PO; +CLOP75TA2 PO; +FLOM0.4C39 PO; +FLUO10CA15 PO; +INSUDET SC; +LANTINJ4 SC; +LISI2.5T2 PO; +OMEP-218 PO; +ONETMIS7 TOP; +PANT40TA3 PO; +PROZ10CA7 PO; +VENTAER INH; +VICT18IN SC; +VITA-158 PO; +VITAD1000T PO; +[UNRECOGNIZED DRUG - CODE] XX
== END ==
LOC: M LABSMTC 10:13
PROVIDERS: ATTEND Anesthesiology
DX: Z01.818 Encounter for other preprocedural examination (principal); Z11.59 Encounter for screening for other viral diseases
CPT/HCPCS: C8903; U0002

== ENCOUNTER → 2019-10-31 | Outpatient (CLI) | payer OTHER ==
--- NOTE | 2019-11-01 03:53 | REP ---
Clinical: Hydronephrosis. Technique: Real time cho scale ultrasound examination using curved array transducer. Findings: The bilateral kidneys are relatively normal in contour, size, echogenicity, and reniform shape without hydronephrosis, significant nephrolithiasis, cystic or mass lesion. No perinephric fluid collection. Right kidney measures 11.2 x 5.3 x 4.1 cm. Left kidney measures 10.2 x 5.0 x 5.3 cm with 3 mm mid pole echogenic focus possibly vascular calcification or small nonobstructing calculus. The bladder demonstrates generalized wall thickening to approximately 18 mm and is collapsed with Marley catheter in satisfactory position. Impression: 1. No hydronephrosis. 2. Possible 3 mm nonobstructing left renal calculus versus vascular calcification. 3. Generalized bladder wall thickening. Further evaluation of the bladder is limited due to collapsed appearance surrounding Marley catheter. Electronically Signed by Pedro Shipman MD 11/01/2019 03:44 A
== END ==
LOC: M RAD 10:34
DX: N13.30 Unspecified hydronephrosis (principal); Z96.0 Presence of urogenital implants

== ENCOUNTER 2019-11-01 13:15 | Day surgery (SDC) | payer OTHER ==
[~2019-11-01] VITALS: Ht 149.9 cm; Wt 77.6 kg
[~2019-11-01 13:15] MED LIST changes: +LR 1,000 ML IV ONE
[2019-11-01] MEDS ORDERED: MIDAZOLAM INJ 2MG/2ML VIAL (J2250 PER 1MG) As Ordered ONE (14:51)
[2019-11-01] MEDS ORDERED: propofoL 200 MG/20 ML VIAL As Ordered ONE (14:51)
[2019-11-01] MEDS ORDERED: fentaNYL 100 MCG/2 ML INJECTION (J3010) As Ordered ONE (14:52)
[2019-11-01] MEDS ORDERED: LIDOCAINE 2% 100MG/5ML SDV (FOR ANES.) As Ordered ONE (14:52)
[2019-11-01] MEDS ORDERED: LIDOCAINE 1% SDV 30ML VIAL As Ordered ONE (15:10)
[2019-11-01] MEDS ORDERED: ceFAZolin 2 GM/D5W 50 ML IV BAG (J0690 PER 500MG) As Ordered ONE ×2 (15:31→15:37)
[2019-11-01] MEDS ORDERED: ONDANSETRON 4MG/2ML VIAL As Ordered ONE (15:50)
[2019-11-01] MEDS ORDERED: KETOROLAC 60 MG/2 ML VIAL As Ordered ONE (15:50)
--- NOTE | 2019-11-01 16:09 | RO ---
DATE OF OPERATION: 11/01/2019 PREOPERATIVE DIAGNOSIS: Cryptogenic stroke. POSTOPERATIVE DIAGNOSIS: Cryptogenic stroke. PROCEDURE PERFORMED: Implantation of Medtronic implantable loop recorder. SURGEON: Drew Curtis MD INNOVATION ANALYST: None. ANESTHESIA: Lidocaine 1% local/monitored anesthetic care. FINDINGS: Cryptogenic stroke. SPECIMENS: None. ESTIMATED BLOOD LOSS: Less than 1 mL. No blood products replaced. No drains. No complications. PROCEDURE DESCRIPTION: Patient was prepped and draped over the sternum and left anterior chest. Lidocaine 1% was used for local anesthetic. An incision through the skin was made with a #15 blade approximately 1 cm in length at approximately the left 4th interspace about 1 inch lateral to the left parasternal border. The guide on the insertion tool was then placed into the incision and advanced into the subcutaneous fat in a caudal direction. The insertion tool was rotated 180 degrees. The plunger was then placed into the insertion tool and used to advance the loop recorder into the subcutaneous fat. The plunger was removed and then the insertion tool was removed leaving the loop recorder behind in situ. The initial R wave was 0.47 mV. The incision was then temporarily approximately using a #4-0 Biosyn suture placed subcuticular with the ends of the suture protruding through the skin 1 cm from either end of incision line. Next, three layers of Dermabond was applied. The #4-0 Biosyn suture was then pulled through the incision line and removed entirely. The patient tolerated the procedure well without any immediate complications. The implantable loop recorder implanted was a TapEngage Reveal LINQ, model LNQ11 with serial #[id number].
[2019-11-01 17:00] VITALS: BP 123/59
== END 2019-11-01 17:19 | disposition home or self-care (01) ==
LOC: M SDC 13:15
PROVIDERS: ATTEND Internal Medicine Cardiovascular Disease
DX: I63.9 Cerebral infarction, unspecified (principal); I25.10 Atherosclerotic heart disease of native coronary artery without angina pectoris; I10 Essential (primary) hypertension; E78.5 Hyperlipidemia, unspecified; E11.9 Type 2 diabetes mellitus without complications; Z79.4 Long term (current) use of insulin; Z79.82 Long term (current) use of aspirin; J44.9 Chronic obstructive pulmonary disease, unspecified; Z87.891 Personal history of nicotine dependence; Z79.899 Other long term (current) drug therapy; Z79.02 Long term (current) use of antithrombotics/antiplatelets
CPT/HCPCS: 33285; C1764; J0690; J1885; J2250; J2405; J3010